=== PATIENT | female | born 1955 | race Caucasian/White ===

== ENCOUNTER 2016-06-22 05:33 | Inpatient (IN) | payer OTHER ==
[~2016-06-22] VITALS: Ht 152.4 cm; Wt 56.9 kg
[2016-06-22] VITALS (12 sets, daily range): BP systolic 102–168; BP diastolic 70–97; PULSE 93–112; RESP 16–18; Ht 152.4 cm; Wt 56.9 kg
[2016-06-22] MEDS ORDERED: DILTIAZEM 25 MG INJ IV ONE (06:00)
[2016-06-22 06:01] LABS: ADD SCAN DIFF NO
[2016-06-22 06:17] LABS: INR 1.11; PROTIME 14.3 Sec (12.2-14.2); PT RATIO 1.1
[2016-06-22 06:18] LABS: PARTIAL THROMBOPLASTIN TIME 52.9 Sec (25.0-35.0)
[2016-06-22 06:19] LABS: ALBUMIN 3.3 g/dl (3.3-4.9)
[2016-06-22 06:20] LABS: POTASSIUM 3.9 mmol/L (3.5-5.1)
[2016-06-22 06:22] LABS: ABNORMAL IP MESSAGE 1; ALBUMIN/GLOBULIN RATIO 0.84; BASOPHIL # 0.1 10^3/ul (0.0-0.1); BASOPHILS % 0.4 % (0.0-2.0); BILIRUBIN,INDIRECT 0.4 mg/dl (0-1.1); BILIRUBIN,TOTAL 0.4 mg/dl (0.2-1.3); CREATININE 1.92 mg/dl (0.44-1.00); EOSINOPHILS # 0.5 10^3/ul (0.0-0.5); HEMATOCRIT 35.1 % (37.0-47.0); HEMOGLOBIN 10.2 g/dl (12.0-16.0); LYMPHOCYTES # 5.4 10^3/ul (0.8-2.9); LYMPHOCYTES % 19.9 % (15.0-51.0); MEAN CORPUSCULAR HEMOGLOBIN 25.7 pg (29.0-33.0); MEAN CORPUSCULAR HGB CONC 29.1 g/dl (32.0-37.0); MEAN CORPUSCULAR VOLUME 88.4 fl (82.0-101.0); MEAN PLATELET VOLUME 9.8 fl (7.4-10.4); MONOCYTE # 1.3 10^3/ul (0.3-0.9); NEUTROPHIL # 19.5 10^3/ul (1.6-7.5); NEUTROPHILS % 72.1 % (39.0-77.0); PLATELET COUNT 335 10^3/UL (140-415); RED BLOOD COUNT 3.97 10^6/ul (4.20-5.40); RED CELL DISTRIBUTION WIDTH 15.7 % (11.5-14.5); TOTAL PROTEIN 7.2 g/dl (6.1-8.1)
[2016-06-22 06:23] LABS: CALCIUM 9.1 mg/dl (8.4-10.2)
--- NOTE | 2016-06-22 06:28 | RADRPT ---
PROCEDURE: XR Chest. CLINICAL INDICATION: Chest Pain. TECHNIQUE: Portable single view of the chest COMPARISON: 12/10/2008 FINDINGS: New right internal jugular double-lumen catheter is seen with tip likely in the right atrium. Cardi omegaly is seen. Pulmonary vascular congestion with probable interstitial edema. Left lower lobe i nfiltrate or edema is seen, fairly extensive. Small to moderate left pleural effusion. No right pl eural effusion. Fluid is seen in the minor fissure. IMPRESSION: Probable diffuse congestive heart failure. Infectious alveolar infiltrate of the left lower lobe is not excluded. Left pleural effusion. RPTAT: [facility] Physician Saurabh Date Time Electronically viewed and signed by Matilde Zavaleta, Physician on 06/22/2016 06:28 LE/
[2016-06-22 06:34] LABS: TROPONIN-I 0.037 ng/ml (0.00-0.12)
[2016-06-22] MEDS ORDERED: PIPER-TAZO 3.375 GM IV (PMX) 100 ML IVPB STA (06:34)
[2016-06-22] MEDS ORDERED: VANCOMYCIN 1 GM (PMX) 250 ML IVPB ONE (07:00)
[2016-06-22] MEDS ORDERED: AMLO-147 PO (07:19)
[2016-06-22] MEDS ORDERED: ASPI325T4 PO (07:19)
[2016-06-22] MEDS ORDERED: CARV12.579 PO (07:21)
[2016-06-22] MEDS ORDERED: ATOR40TA68 PO (07:21)
[2016-06-22] MEDS ORDERED: CLON0.2T5 PO (07:22)
[2016-06-22] MEDS ORDERED: CLOP75TA27 PO (07:22)
[2016-06-22] MEDS ORDERED: ERGO500037 PO (07:23)
[2016-06-22] MEDS ORDERED: FER325 PO (07:24)
[2016-06-22] MEDS ORDERED: ISOS60TA PO (07:25)
[2016-06-22] MEDS ORDERED: LANT3I SC (07:25)
[2016-06-22] MEDS ORDERED: PENT400T2 PO (07:26)
[2016-06-22] MEDS ORDERED: NIFE30TA60 PO (07:26)
[2016-06-22] MEDS ORDERED: ACETAMINOPHEN 325 MG TAB PO PRN (08:00)
[2016-06-22] MEDS ORDERED: ONDANSETRON 4 MG INJ IV PRN (08:00)
[2016-06-22] MEDS ORDERED: SODIUM CHLORIDE 0.9% 1L BAG IV* STA (08:10)
[2016-06-22] MEDS ORDERED: INSULIN LISPRO 100 UNIT/ML VIAL SC STA (08:14)
--- NOTE | 2016-06-22 08:19 | ERA ---
ER Documentation Chief Complaint Date/Time DATE: 06/22/16 TIME: 07:42 Chief Complaint bib rescue 39 in afib w rvr and mild respiratory distress HPI 60-year-old female is brought in respiratory extremis from dialysis for having a high heart rate and breathing difficulties. Cardio the patient today is her first dialysis. Very little dialysis was completed prior to sending her to the emergency room. She states she's been feeling bad for at least a day. Denies chest pain but says she's had chest discomfort, shortness of breath, chills. States that she's had a mild cough. Denies fevers. Has had generalized weakness with no focal weakness. ROS All systems reviewed and are negative except as per history of present illness. Medications Home Meds Reported Medications Pentoxifylline* (Pentoxifylline*) 400 Mg Tablet.sa, 400 MG PO DAILY, TAB 06/22/16 Nifedipine* (Nifedipine ER*) 30 Mg Tablet.sa, 30 MG PO BID, TAB.SA 06/22/16 Isosorbide Mononitrate* (Isosorbide Mononitrate*) 60 Mg Tab.er.24h, 60 MG PO DAILY, TAB 06/22/16 Insulin Glargine* (Lantus*) 100 Unit/Ml Soln, 25 UNIT SC QHS, #1 VIAL 06/22/16 Ferrous Sulfate* (Ferrous Sulfate*) 325 Mg Tabec, 325 MG PO BID, TAB 06/22/16 Ergocalciferol (Vitamin D2) (VITAMIN D2) 50,000 Unit Capsule, 01111 UNIT PO EVERY SUNDAYS, CAP 06/22/16 Clopidogrel Bisulfate (Clopidogrel) 75 Mg Tablet, 75 MG PO DAILY, #30 TAB 06/22/16 Clonidine Hcl* (Clonidine Hcl*) 0.2 Mg Tablet, 0.2 MG PO Q8, TAB 06/22/16 Carvedilol* (Carvedilol*) 12.5 Mg Tablet, 12.5 MG PO BID, #60 TAB 06/22/16 Atorvastatin* (Atorvastatin*) 40 Mg Tablet, 40 MG PO QHS, #30 TAB 06/22/16 Aspirin* (Aspirin*) 325 Mg Tablet, 325 MG PO DAILY, TAB 06/22/16 Amlodipine Besylate* (Amlodipine Besylate*) 10 Mg Tablet, 10 MG PO DAILY, #30 TAB 06/22/16 Allergies Allergies: Coded Allergies: Sulfa (Sulfonamide Antibiotics) (Verified Allergy, Unknown, 12/10/08) Sulfamethoxazole (Verified Allergy, Unknown, 12/10/08) Trimethoprim (Verified Allergy, Unknown, 12/10/08) PMhx/Soc History of Surgery: Yes (APPENDECTOMY, LITHOTRIPSY) Anesthesia Reaction: No Hx Neurological Disorder: No Hx Cardiac Disorders: Yes (HTN,MA) Hx Psychiatric Problems: No Hx Miscellaneous Medical Probl: Yes (ESRD ON HD, DM) Hx Alcohol Use: No Hx Substance Use: No Hx Tobacco Use: No Smoking Status: Never smoker Physical Exam Vitals Vital Signs Date Time Temp Pulse Resp B/P Pulse Ox O2 Delivery O2 Flow Rate FiO2 06/22/16 06:04 117 96 60 06/22/16 06:02 95 20 163/73 95 BIPAP 06/22/16 05:45 97.9 156 38 248/133 95 Physical Exam Const: [] Moderate to severe distress Head: Atraumatic Eyes: Normal Conjunctiva ENT: Normal External Ears, Nose and Mouth. Neck: Full range of motion..~ No meningismus. Resp: Rales and decreased breath sounds bilaterally, tachypnea, accessory muscle use Cardio: Regular tachycardia no murmurs Abd: Soft, non tender, non distended. Normal bowel sounds Skin: No petechiae or rashes Back: No midline or flank tenderness Ext: No cyanosis, trace pedal edema, right sided dialysis catheter and upper chest Neur: Awake and alert and oriented 3 Psych: Anxious Result Diagram: 06/22/16 0545 06/22/16 0545 Results 24 hrs Laboratory Tests Test 06/22/16 05:45 White Blood Count 27.010^3/ul Red Blood Count 3.9710^6/ul Hemoglobin 10.2g/dl Hematocrit 35.1% Mean Corpuscular Volume 88.4fl Mean Corpuscular Hemoglobin 25.7pg Mean Corpuscular Hemoglobin Concent 29.1g/dl Red Cell Distribution Width 15.7% Platelet Count 02464^3/UL Mean Platelet Volume 9.8fl Neutrophils % 72.1% Lymphocytes % 19.9% Monocytes % 5.0% Eosinophils % 2.0% Basophils % 0.4% Nucleated Red Blood Cells % 0.0/100WBC Neutrophils # 19.510^3/ul Lymphocytes # 5.410^3/ul Monocytes # 1.310^3/ul Eosinophils # 0.510^3/ul Basophils # 0.110^3/ul Nucleated Red Blood Cells # 0.010^3/ul Prothrombin Time 14.3Sec Prothrombin Time Ratio 1.1 INR International Normalized Ratio 1.11 Activated Partial Thromboplast Time 52.9Sec Sodium Level 141mmol/L Potassium Level 3.9mmol/L Chloride Level 102mmol/L Carbon Dioxide Level 24mmol/L Anion Gap 19 Blood Urea Nitrogen 24mg/dl Creatinine 1.92mg/dl Glucose Level 353mg/dl Calcium Level 9.1mg/dl Total Bilirubin 0.4mg/dl Direct Bilirubin 0.00mg/dl Indirect Bilirubin 0.4mg/dl Aspartate Amino Transf (AST/SGOT) 62IU/L Alanine Aminotransferase (ALT/SGPT) 62IU/L Alkaline Phosphatase 154IU/L Troponin I 0.037ng/ml B-Type Natriuretic Peptide Pending Total Protein 7.2g/dl Albumin 3.3g/dl Globulin 3.90g/dl Albumin/Globulin Ratio 0.84 Current Medications Medications (Trade) Dose Ordered Sig/Paula Route PRN Reason Start Time Stop Time Status Last Admin Dose Admin Diltiazem HCl 20 mg 20 mg ONCE ONCE IV 06/22/16 06:00 06/22/16 06:01 DC 06/22/16 05:45 Vancomycin HCl 250 ml @ 125 mls/hr ONCE ONCE IVPB 06/22/16 07:00 06/22/16 08:59 Piperacillin Sod/ Tazobactam Sod (Zosyn 3.375gm/ 100 ml (Pmx)) 100 ml @ 200 mls/hr ONCE STAT IVPB 06/22/16 06:34 06/22/16 07:03 DC Procedures/MDM A. fib with RVR, malignant hypertension, respiratory failure secondary to CHF/ fluid overload, sepsis. Initial hospital EKG read as sinus tachycardia in the have P waves however EKG in the field showed A. fib with RVR which patient does have a history of. She is put on BiPAP and given 20 mg of Cardizem IV which did decrease her heart rate as as well as her blood pressure decreased her distress. When her white blood cell count came back 3 times his previous value she was diagnosed with sepsis by myself. Sources possibly pneumonia as the chest x-rays obscured by fluid overload. Urine is still pending. Started the patient vancomycin and Zosyn. After 2 hours and remove the BiPAP and the patient was breathing much better requiring only nasal cannula. Given lispro 8 units subcutaneously for hyperglycemia. Her condition is significant improved enough to be admitted to telemetry currently. I spoke with Dr. Boss, who called the emergency room by his patient. He requested the patient be admitted to Dr. Nance, whom I spoke with and agreed to admit the patient. For sepsis protocol: 30 mL/kg of IV fluid was not given because patient has physical exam signs, radiological signs and laboratory evidence of severe fluid overload. EKG interpretation: Sinus tachycardia rate of 157, left axis deviation, inverted T waves in lateral leads concerning for possible ischemia. Normal intervals. ekg monitor tech interpretation: Sinus tachycardia versus A. fib with RVR followed by normal sinus rhythm without arrhythmia Chest x-ray interpretation: Pulmonary vascular congestion and mild pulmonary edema with possible superimposed infiltrate, no pneumothorax, no widened mediastinum, no fractures. Critical care time 51 minutes: This includes treatment of multiple in stable vital signs with malignant hypertension, extreme tachycardia, respiratory failure, sepsis, very careful fluid management, antibiotic administration, use of Cardizem, use of noninvasive positive pressure ventilation, ventilator settings, chart review, multiple is the patient's bedside to reassess status, discussion with patient's doctor as well as admitting physician. Discussed with patient. This does not include any billable procedures. Departure Diagnosis: Primary Impression: Respiratory failure Additional Impressions: Sepsis Malignant hypertension Congestive heart failure Hyperglycemia Condition: Serious EMILIANO GUZMAN DO Jun 22, 2016 08:01
[2016-06-22 08:23] LABS: AADO2 Arterial 111.2 mmHg (7.0-24.0); Allen Test ACCEPTAB; Arterial Base Excess -0.3 mmol/L (-3.0-3); Arterial COHb 0.3 % (0.0-3.0); Arterial Fraction of Oxyhgb 90.1 % (93.0-99.0); Arterial HCO3 23.9 mmol/L (22.0-26.0); Arterial MetHb 0.2 % (0.0-1.5); Arterial Total Hemglobin 10.3 g/dl (12.0-18.0); MODE NASAL CANNULA
[2016-06-22] MEDS ORDERED: INSULIN ASPART [NOVOLOG] 3 ML PEN SC ONE (08:30)
[2016-06-22 08:38] LABS: ADD UMIC YES; URINE BILIRUBIN (Dip) NEGATIVE (NEGATIVE); URINE BLOOD (Dip) 1+ (NEGATIVE); URINE COLOR LT. YELLOW (YELLOW); URINE KETONES (Dip) NEGATIVE (NEGATIVE); URINE LEUKOCYTE ESTERASE (Dip) 2+ (NEGATIVE); URINE NITRITE (Dip) NEGATIVE (NEGATIVE); URINE TOTAL PROTEIN (Dip) 4+ (NEGATIVE); URINE UROBILINOGEN (Dip) 0.2 E.U./dL (0.1-1.0)
[2016-06-22 08:51] LABS: BACTERIA,URINE MODERATE; URINE RBCS 25-50 /HPF (0)
--- NOTE | 2016-06-22 10:11 | CONS ---
DATE OF ADMISSION: 06/22/2016 DATE OF CONSULTATION: TYPE OF CONSULTATION: Cardiology. REFERRING PHYSICIAN: Dr. Nance. REASON FOR CONSULTATION: Atrial fibrillation. CHIEF COMPLAINT: Tachycardia. HISTORY OF PRESENT ILLNESS: Thank you for this referral. History obtained from the patient who is an extremely poor historian. Discussed with the ER physician. Discussed with Dr. Nance. This is an unfortunate female with history of renal failure on dialysis, who was brought in from dialysis after she was noted to become tachycardic. Enterprise Analyst EKG showed atrial fibrillation with rapid ventricular response. ER EKG appeared to be sinus tachycardia. She has been given Cardi zem, heart rate has improved, and currently blood pressure has improved. She has severe leukocytosi s as well. She complains of generalized weakness. Denies any palpitations or chest pain to me. Lee s mild cough. She denies any history of cardiac disorder; however, again is an extremely poor histo armin. MEDICATIONS: At home, as per medication reconciliation, personally reviewed. ALLERGIES: SULFA DRUGS. SOCIAL HISTORY: The denies any smoking or drinking to me. FAMILY HISTORY: No reported coronary artery disease. PAST MEDICAL HISTORY: Renal failure on dialysis, hypertension, history of diabetes, dyslipidemia. REVIEW OF SYSTEMS PHYSICAL EXAMINATION: VITAL SIGNS: Temperature 97.9, heart rate 89, blood pressure 160/73, respiration rate of 20, satura ting 96%. Initially, her blood pressure was as high as 248/130. HEENT: Normocephalic, atraumatic. Pupils are equal. Oropharynx with very poor dentition. CARDIOVASCULAR: Regular rate and rhythm, systolic murmur. PULMONARY: With no wheezes anteriorly, mild rhonchi. GASTROINTESTINAL: Soft, nontender. EXTREMITIES: Positive lower extremity edema. NEUROLOGIC: Awake and alert. Responds appropriately. PSYCHIATRIC: Anxious, otherwise stable. LABORATORY: WBC 27, hemoglobin 10.2, platelets 335. Sodium 141, potassium 3.9, BUN of 24, creatini ne 1.9, glucose of 353. 134,000. Albumin is 3.3. Chest x-ray read by radiologist shows prob ably diffuse congestive heart failure. in the left lower lobe is not excluded. Left pleural effusion. EKG by paramedics, atrial fibrillation. Repeat EKG shows what appeared to be sinus tachycardia most likely. ASSESSMENT AND PLAN: 1. Atrial fibrillation with rapid ventricular response, paroxysmal, currently back in sinus rhythm. 2. Probable sepsis. 3. Hypertension. 4. Renal failure on dialysis. 5. Diabetes. 6. Dyslipidemia. 7. Questionable history of coronary artery disease, on aspirin and Plavix now. RECOMMENDATIONS: I will order an echocardiogram for LV function. Thyroid function will be checked as well. Dialysis as per Renal. Cardiac enzymes will be checked as well. For now, we will continu e with the aspirin and Plavix. bioinformatics programmer will be continued. Antibiotic management as per I nternal medicine. Thank you for this referral. We will continue to follow along with you. Dictated By: FREDERICK HANSEN/ANGIE Conf#: [id number] DID#: [id number]
--- NOTE | 2016-06-22 12:13 | HP ---
DATE OF ADMISSION: 06/22/2016 CHIEF COMPLAINT: Shortness of breath, chills. HISTORY OF PRESENT ILLNESS: This is a 60-year-old female with a past medical history of end-stage r enal disease on dialysis Monday, Monday, Monday with access PermCath, history of diabetes, hypert ension, dyslipidemia, history of coronary artery disease with history of peripheral vascular disease who presents to [facility] Emergency Room from her dialysis center due to shortness of jovani ath and respiratory distress. The patient at her dialysis center was noted to be tachycardic, havin g difficulty breathing. As a result, the patient was brought over to [facility] Emergency Room. Upon arrival, patient was noted to be in atrial fibrillation with rapid rate with heart rates as high as 150s. The patient was given IV diltiazem converted to sinus rhythm. The patient also d uring laboratory data showed a white count of 27,000, had a dirty urinalysis and was given IV antibi otic therapy. The patient clinically improved. Upon my evaluation of the patient at this time, she is lethargic. Denies any recent episodes of hem optysis, hemetemesis, hematochezia. The patient still continues to have mild shortness of breath. No other events noted. PAST MEDICAL HISTORY: History of end-stage renal disease, history of hypertension, history of diabe jose raul, history of dyslipidemia, history of coronary artery disease, history of peripheral vascular dis ease. PAST SURGICAL HISTORY: The patient is status post appendectomy, lithotripsy and PermCath placement. FAMILY HISTORY: Noncontributory. ALLERGIES: Please see list. SOCIAL HISTORY: Does not drink, smoke or do drugs. MEDICATIONS: Patient medications have been reviewed and reconciled. REVIEW OF SYSTEMS: A 14-point review of systems was conducted. Pertinent positives stated in HPI, otherwise negative. PHYSICAL EXAMINATION: VITAL SIGNS: Blood pressure 159/79, respiration 18, pulse 80, temperature 97.9. HEENT: Head is normocephalic. Pupils are reactive to light. NECK: Supple. HEART: Irregularly irregular. LUNGS: Show diminished breath sounds at the base. Positive crackles. CHEST: The patient has a PermCath noted. ABDOMEN: Soft, nontender to palpation. No rebound or guarding. EXTREMITIES: Negative for clubbing, cyanosis. Positive for edema. DERMATOLOGIC: No rashes. MUSCULOSKELETAL: No joint effusions. NEUROLOGIC: No obvious focal deficits, although, exam is somewhat limited due to lack of patient co operation. LABORATORY DATA: Shows a sodium 141, potassium 2.9, chloride 102, BUN 24, creatinine 1.29, glucose 353. BNP is 134,000, white count 27, hemoglobin 10.3, hematocrit 35.1, platelet count 355. IMAGING STUDIES: The patient's chest x-ray shows diffuse CHF, infectious alveolar infiltrate cannot be excluded. ASSESSMENT AND PLAN: This is a 60-year-old female who presents with: 1. Sepsis, underlying source unclear, possible pneumonia, possible urinary tract infection. Plan a t this point is to continue the patient on antibiotic therapy. Blood cultures have been sent. Lact ic acid levels are within normal limits. Will also check procalcitonin level. We will place an ID consult with Dr. Suero for evaluation and monitor closely. 2. Atrial fibrillation with rapid ventricular rate. Underlying etiology may be due to sepsis. The patient is currently in sinus rhythm. The patient will be ruled out for acute coronary syndrome. Cardiology consult was placed with Dr. Rodriguez. We will continue current medical management. Continu e AV david blockers. 3. End-stage renal disease. The patient is on dialysis Monday, Monday and Monday with access [facility]. Plan for dialysis today for 3 hours on 3 K bath, calcium 2.5, will ultrafiltrate as tolerat ed. 4. Acute congestive heart failure exacerbation, possible systolic, diastolic. The patient is has n oted congestion on chest x-rays. We will plan for ultrafiltration with dialysis. 5. Diabetes. Continue Accu-Cheks and sliding scale. Continue Lantus. 6. Anemia of end-stage renal disease. Continue to monitor H and H levels. Continue Epogen. 7. Mineral bone disorder. Continue to monitor and phosphorus levels. 8. History of coronary artery disease. Continue medical management. 9. History of peripheral arterial disease. The patient is on Trental, we will continue. 10. Hypertension. Continue current blood pressure regimen. Continue ultrafiltration dialysis. 11. Gastrointestinal and deep venous thrombosis prophylaxis. Continue proton pump inhibitor and se quential leg squeezers. Please note, I spent over 25 minutes of [id number] time with the patient, discussing code. The pat ient is FULL CODE. Dictated By: ÁNGEL GOLDBERG/ANGIE Conf#: [id number] DID#: [id number]
[2016-06-22] MEDS ORDERED: DEXTROSE 50% 50 ML SYRINGE IV PRN ×2 (12:30)
[2016-06-22] MEDS ORDERED: GLUCAGON 1 MG INJ IM PRN (12:30)
[2016-06-22] MEDS ORDERED: GLUCOSE GEL 15 GRAM TUBE PO PRN ×2 (12:30)
[2016-06-22] MEDS ORDERED: GLUCOSE GEL 15 GRAM TUBE BUCCAL PRN (12:30)
--- NOTE | 2016-06-22 15:50 | CONS ---
Date/Time of Note Date/Time of Note DATE: 06/22/16 TIME: 15:49 Assessment/Plan Assessment/Plan Chief Complaint/Hosp Course ID PROGRESS NOTE ABX DAY #1=> Levaquin #1 + IV Steroids 24H INTERVAL SUMMARY * Patient seen and examined earlier today in ED #3 - she is A/A/O able to communicate; however she is weak and prefers to sleep. * She was admitted w/chest pain in setting tachycardia, HTN urgency, and pulmonary fluid overload -- tells me she is waiting for HD today was told "No machines available right now" * CXR 06/22/16 FINDINGS: * New right internal jugular double-lumen catheter is seen with tip likely in the right atrium. Cardiomegaly is seen. Pulmonary vascular congestion with probable interstitial edema. Left lower lobe infiltrate or edema is seen, fairly extensive. Small to moderate left pleural effusion. No right pleural effusion. Fluid is seen in the minor fissure. * IMPRESSION:Probable diffuse congestive heart failure. Infectious alveolar infiltrate of the left lower lobe is not excluded. Left pleural effusion. * INITIAL ED VITALS: HR 156 B/P 248/133 , TEMP 97.9 with significant leukocytosis @ 27,000, w/elevated BNP 134,000 * She has chest congestion w/cough PHYSICAL EXAMINATION: GENERAL: 60 yo F lethargic on supplemental O2, calm, NAD, communicative HEENT: AT, NC, anicteric, EOMsI, no oral thrush NECK: Supple, trachea midline. CHEST: Rise symmetrical, (+) chest congested coughing w/deep inspiration, Right chest HD catheter in place HEART: Pulse RRR -- Tachy ABDOMEN: Soft, non-tender EXTREMITIES: Warm, dry, no edema SKIN: Intact Neuro: Grossly intact ID ASSESSMENT 60 yo F w/PMHx of HTN, DM, prior [place], ESRD-HD via right chest HD catheter present on admission seen in ED bed #3 earlier today with: 1. Acute chest pain in setting fluid overload, tachycardia, HTN urgency, with mild respiratory distress associated w/hypoxia, cough, chest congestion. 2. Acute fluid overload status -- CHF w/elevated BNP, tachycardia 3. SIRS vs cold sepsis w/hypothermic temp 97.9 on presentation, elevated lactic acid to 1.7, significant leukocytosis 27,000 4. Acute bronchopneumonia, with LLL infiltrate - HCAP per HD unit status OP 5. Hx of [place] ( ) MRSA Nares-> Will screen INVASIVES: PIV ABX ALLERGY: KNDA CURRENT ABX: ABX DAY #1=>Vanco IV + Zosyn ID RECOMMENDATIONS 1. Continue current ABX 2. Sputum for C&S 3. Swab nares for MRSA * -- Awaiting available hospital bed and HD when available * --Thank you, will continue to follow * * . Problems: Consultation Date/Type/Reason Admit Date/Time Initial Consult Date Exam/Review of Systems Vital Signs Vitals Vital Signs Date Time Temp Pulse Resp B/P Pulse Ox O2 Delivery O2 Flow Rate FiO2 06/22/16 15:15 97 06/22/16 14:45 19 06/22/16 13:30 161/83 96 Nasal Cannula 4.0 06/22/16 07:30 60 06/22/16 05:45 97.9 Results Result Diagram: 06/22/16 0545 06/22/16 0545 Results 24 hrs Laboratory Tests Test 06/22/16 05:45 06/22/16 07:00 06/22/16 07:50 06/22/16 08:34 White Blood Count 27.0 H Red Blood Count 3.97 L Hemoglobin 10.2 L Hematocrit 35.1 L Mean Corpuscular Volume 88.4 Mean Corpuscular Hemoglobin 25.7 L Mean Corpuscular Hemoglobin Concent 29.1 L Red Cell Distribution Width 15.7 H Platelet Count 335 Mean Platelet Volume 9.8 Neutrophils % 72.1 Lymphocytes % 19.9 Monocytes % 5.0 Eosinophils % 2.0 Basophils % 0.4 Nucleated Red Blood Cells % 0.0 Neutrophils # 19.5 H Lymphocytes # 5.4 H Monocytes # 1.3 H Eosinophils # 0.5 Basophils # 0.1 Nucleated Red Blood Cells # 0.0 Prothrombin Time 14.3 H Prothrombin Time Ratio 1.1 INR International Normalized Ratio 1.11 Activated Partial Thromboplast Time 52.9 H Sodium Level 141 Potassium Level 3.9 Chloride Level 102 Carbon Dioxide Level 24 Anion Gap 19 H Blood Urea Nitrogen 24 H Creatinine 1.92 H Glucose Level 353 H Calcium Level 9.1 Total Bilirubin 0.4 Direct Bilirubin 0.00 Indirect Bilirubin 0.4 Aspartate Amino Transf (AST/SGOT) 62 H Alanine Aminotransferase (ALT/SGPT) 62 Alkaline Phosphatase 154 H Troponin I 0.037 B-Type Natriuretic Peptide 219748 H Total Protein 7.2 Albumin 3.3 Globulin 3.90 H Albumin/Globulin Ratio 0.84 Blood Gas Specimen Source Blood arterial Arterial Blood Date Drawn 06/22/2016 8:14:17 AM Arterial Blood pH (Temp corrected) 7.423 Arterial Blood pCO2 (Temp correct) 37.5 Arterial Blood pO2 (Temp corrected) 58.6 L Arterial Blood HCO3 23.9 Arterial Blood Base Excess -0.3 Arterial Blood Oxygen Saturation 90.6 L Homar Test ACCEPTAB Arterial Blood Gas Puncture Site Left Radial Arterial Blood Carboxyhemoglobin 0.3 Arterial Blood Methemoglobin 0.2 Blood Gas A-a O2 Differential 111.2 H Oxyhemoglobin Percent 90.1 L Total Hemoglobin 10.3 L Blood Gas Temperature 37.0 Blood Gas Modality NASAL CANNULA FiO2 30.0 Blood Gas Notified Whom JLD Blood Gas Notified Time 06/22/2016 8:22:56 AM Lactic Acid Level 1.7 1.4 Urine Color LT. YELLOW Urine Clarity CLEAR Urine pH 6.5 Urine Specific [place] 1.015 Urine Ketones NEGATIVE Urine Nitrite NEGATIVE Urine Bilirubin NEGATIVE Urine Urobilinogen 0.2 E.U./dL Urine Leukocyte Esterase 2+ H Urine Microscopic RBC 25-50 Urine Microscopic WBC >50 Urine Epithelial Cells FEW Urine Bacteria MODERATE Urine Yeast MODERATE Urine Hemoglobin 1+ H Urine Glucose 0.25% H Urine Total Protein 4+ H Test 06/22/16 13:20 Lactic Acid Level 0.8 Medications Medications Current Medications Aspirin (Aspirin) 325 mg DAILY PO ; Start 06/23/16 at 09:00 Atorvastatin Calcium (Lipitor) 40 mg QHS PO ; Start 06/22/16 at 21:00 Carvedilol (Coreg) 12.5 mg BID PO ; Start 06/22/16 at 21:00 Clonidine (Catapres) 0.2 mg Q8 PO ; Start 06/22/16 at 14:00 Clopidogrel Bisulfate (plaVIX) 75 mg DAILY PO ; Start 06/23/16 at 09:00 Ferrous Sulfate (Ferrous Sulfate (Ec)) 325 mg BID PO ; Start 06/22/16 at 21:00 Isosorbide Mononitrate (Imdur) 60 mg DAILY PO ; Start 06/23/16 at 09:00 Nifedipine (Procardia Xl) 30 mg BID PO ; Start 06/22/16 at 21:00; Status Future hold Pentoxifylline (Trental) 400 mg DAILY PO ; Start 06/23/16 at 09:00 Miscellaneous Information 1 ea NOTE XX ; Start 06/22/16 at 12:30 Glucose (Glutose) 15 gm Q15M PRN PO DECREASED GLUCOSE; Start 06/22/16 at 12:30 Glucose (Glutose) 22.5 gm Q15M PRN PO DECREASED GLUCOSE; Start 06/22/16 at 12: 30 Dextrose (D50w Syringe) 25 ml Q15M PRN IV DECREASED GLUCOSE; Start 06/22/16 at 12:30 Dextrose (D50w Syringe) 50 ml Q15M PRN IV DECREASED GLUCOSE; Start 06/22/16 at 12:30 Glucagon (Glucagen) 1 mg Q15M PRN IM DECREASED GLUCOSE; Start 06/22/16 at 12:30 Glucose (Glutose) 15 gm Q15M PRN BUCCAL DECREASED GLUCOSE; Start 06/22/16 at 12 :30 Insulin Glargine (Lantus) 10 unit QHS SC ; Start 06/22/16 at 21:00 AUGSTIN IRELAND NP Jun 22, 2016 15:50
--- NOTE | 2016-06-22 16:30 | CONS ---
DATE OF ADMISSION: 06/22/2016 DATE OF CONSULTATION: 06/22/2016 REASON FOR CONSULTATION: Antibiotic management. HISTORY OF PRESENT ILLNESS: Magalys Finley is a 60-year-old female who comes in with short ness of breath and chills and is being seen for antibiotic management. Her past problems include: 1. End-stage renal disease on dialysis 3 times a week. She has a PermCath. 2. Her second problem is PermCath placement. 2. Adult-onset diabetes mellitus. 3. Hypertension. 4. Dyslipidemia. 5. Coronary artery disease. 6. Peripheral vascular disease. Acutely, she presents to [facility] from the dialysis center short of breath and r espiratory distress. She was noted to be tachycardic with difficulty breathing. She was noted to b e in atrial fibrillation with rapid response, heart rate in the 150s and was given IV diltiazem to c onvert to sinus rhythm. Her white count was 27,000, H and H of 10.3 and 35.1, platelet count 515,00 0. BUN and creatinine 24/1.9, although, she is on dialysis and her random glucose was 353. PAST MEDICAL HISTORY: As outlined. PAST SURGICAL HISTORY: Status post appendectomy, status post lithotripsy and PermCath placement. FAMILY HISTORY: Noncontributory. SOCIAL HISTORY: She does not smoke, drink or abuse drugs. ALLERGIES: NONE TO PENICILLIN, SULFA OR FOODS. MEDICATIONS: Per chart. REVIEW OF SYSTEMS: As per HPI. PHYSICAL EXAMINATION: GENERAL: The patient is an elderly appearing female who is lethargic but arousable, in no acute dis tress. VITAL SIGNS: Stable. She is afebrile. SKIN: Without generalized rash. HEENT: Within normal limits. NECK: Supple. LYMPH NODES: None palpable. CHEST: Decreased breath sounds at the bases. THORAX: She has a PermCath placed. HEART: Irregularly irregular rhythm. ABDOMEN: Soft, nontender, without organosplenomegaly or masses. EXTREMITIES: Without cyanosis, clubbing, or edema. RECTAL AND GENITAL: Deferred. NEUROLOGIC: No focal neurological abnormalities, although, the exam is limited due to lack of patie nt cooperation. Chest x-ray shows diffuse CHF. She has an alveolar infiltrates which may be infect ious. IMPRESSION AND PLAN: The patient comes in with sepsis, probable pneumonia, possible urinary tract i nfection. Blood cultures sent, lactic acid levels within normal limits. Procalcitonin level was se nt. The patient was begun on vancomycin and Zosyn. She has a new right internal jugular double lum en catheter tip in the right atrium, interstitial edema, left lower lobe infiltrate. We will continu e her on current therapy. Her urine is negative for nitrite, but she is 2+ leukocyte esterase and g reater than 50 white cells per high-power field, so she could have a urinary tract infection as well as pneumonia. I will dictate my findings to Dr. Nance. Dictated By: KASSANDRA ARREGUIN MD, JD/ANGIE Conf#: [id number] DID#: [id number]
[2016-06-22] MEDS: INSULIN ASPART [NOVOLOG] 3 ML PEN SC SCH ×2 (17:55→21:00)
[2016-06-22] MEDS ORDERED: INSULIN GLARGINE [LANtus] 3 ML PEN SC SCH (21:00)
[2016-06-22] MEDS: ATORVASTATIN 40 MG TAB PO SCH (22:00)
[2016-06-22] MEDS: FERROUS SULFATE (EC) 325 MG TAB PO SCH (22:00)
[2016-06-22] MEDS: NIFEdipine (XL) 30 MG TAB PO SCH (22:00)
[2016-06-23] VITALS (19 sets, daily range): BP systolic 101–159; BP diastolic 50–76; PULSE 75–96; RESP 16–20
[2016-06-23] MEDS: INSULIN GLARGINE [LANtus] 3 ML PEN SC SCH ×2 (00:44→22:22)
[2016-06-23] MEDS: INSULIN ASPART [NOVOLOG] 3 ML PEN SC SCH ×4 (07:55→22:19)
[2016-06-23 08:07] LABS: CALCIUM 8.7 mg/dl (8.4-10.2); CREATININE 1.74 mg/dl (0.44-1.00); MAGNESIUM 1.9 mg/dl (1.7-2.5); PHOSPHORUS 3.6 mg/dl (2.5-4.9); POTASSIUM 3.6 mmol/L (3.5-5.1)
--- NOTE | 2016-06-23 08:38 | RADRPT ---
Echocardiogram Report Patient Name: ADELE HENDRICKSON Gender: Female Date: 1955 Study Date: 22-Jun-2016 Contracting Engineer: ELISSA [facility] Location: [facility] Ref. Physician: FREDERICK RODRIGUEZ Quality: Good Procedures: Transthoracic echocardiogram with complete 2D, M-Mode, and doppler examination. Indications: Atrial Fibrillation, CHF. 2D/M Mode Doppler Measurement Value Normal Ranges Measurement Value Normal Ranges LVIDd 2D 4.3 3.5 - 5.6 cm AV Peak Mitch 1.7 m/sec LVIDs 2D 3.9 2.1 - 4.1 cm AV Peak PG 11.9 mmHg LVPWd 2D 1.5 0.6 - 1.1 cm LVOT Peak Mitch 1.1 m/sec IVSd 2D 1.5 0.6 - 1.1 cm LVOT Peak PG 4.5 mmHg AoR Diam 2D 2.4 2.0 - 3.7 cm MV E Peak Mitch 1.3 m/sec EDV 2D 80.9 cm3 MV A Peak Mitch 1.0 m/sec ESV 2D 58.7 cm3 MV E/A 1.2 LA Dimen 2D 4.5 2.3 - 4.0 cm MV Decel Time 109 msec MV Decel Houghton 12 MV E/A 1.2 TR Peak Mitch 2.2 m/sec TR Peak PG 20.2 mmHg Findings Left Ventricle: Normal left ventricular cavity size. Moderate concentric left ventricular hypertrophy. Ejection fraction is visually estimated at 25 %. Tissue Doppler/Mitral Doppler indices are consistent with impaired relaxation (Stage I diastolic dysfunction). Multiple segmental wall motion abnormalities. Right Ventricle: Normal right ventricular systolic function. Mild enlargement of right ventricle. Left Atrium: There is moderate enlargement of left atrium. Right Atrium: The right atrium is normal in size. Mitral Valve: Mild mitral leaflet calcification. Mild mitral annular calcification. Mild to moderate mitral valve regurgitation. Aortic Valve: Normal appearance of the aortic valve. Trace aortic valve regurgitation. Tricuspid Valve: Tricuspid valve not well visualized. Estimated peak PA systolic pressure 22 mmHg. There is mild tricuspid regurgitation. Pulmonic Valve: There is mild pulmonic regurgitation. Pericardium: Pleural effusion seen. Aorta: Normal aortic root. IVC: Dilated inferior vena cava with poor inspiratory collapse consistent with elevated right atrial pressures. Conclusions 1.Normal left ventricular cavity size. Moderate concentric left ventricular hypertrophy. Ejection fraction is visually estimated at 25 %. Tissue Doppler/Mitral Doppler indices are consistent with impaired relaxation (Stage I diastolic dysfunction). Multiple segmental wall motion abnormalities. 2.There is moderate enlargement of left atrium. 3.Mild mitral leaflet calcification. Mild mitral annular calcification. Mild to moderate mitral valve regurgitation. 4.Normal appearance of the aortic valve. Trace aortic valve regurgitation. 5.Tricuspid valve not well visualized. Estimated peak PA systolic pressure 22 mmHg. There is mild tricuspid regurgitation. 6.Dilated inferior vena cava with poor inspiratory collapse consistent with elevated right atrial pressures. Electronically Signed By: Frederick Rodriguez 23-Jun-2016 08:37:20 -0700 Patient Name: ADELE HENDRICKSON Study Date: 22-Jun-2016 [id number]
[2016-06-23] MEDS: ASPIRIN 325 MG TAB PO SCH (08:43)
[2016-06-23] MEDS: FERROUS SULFATE (EC) 325 MG TAB PO SCH ×2 (08:44→21:42)
[2016-06-23] MEDS: NIFEdipine (XL) 30 MG TAB PO SCH ×2 (08:45→21:42)
[2016-06-23] MEDS: CLOPIDOGREL 75 MG TAB PO SCH (08:45)
[2016-06-23] MEDS: ISOSORBIDE MONONITRATE(SR)60 MG TAB PO SCH (08:45)
[2016-06-23] MEDS: PENTOXIFYLLINE (SR) 400 MG TAB PO SCH (08:45)
[2016-06-23] MEDS ORDERED: AMLODIPINE 10 MG TAB PO SCH (09:00)
[2016-06-23 09:09] LABS: ADD SCAN DIFF NO
[2016-06-23 09:10] LABS: BASOPHILS % 0.3 % (0.0-2.0); EOSINOPHILS # 0.5 10^3/ul (0.0-0.5); EOSINOPHILS % 5.1 % (0.0-7.0); HEMATOCRIT 30.4 % (37.0-47.0); HEMOGLOBIN 9.2 g/dl (12.0-16.0); LYMPHOCYTES # 1.7 10^3/ul (0.8-2.9); MEAN CORPUSCULAR HEMOGLOBIN 26.1 pg (29.0-33.0); MEAN CORPUSCULAR HGB CONC 30.3 g/dl (32.0-37.0); MEAN CORPUSCULAR VOLUME 86.1 fl (82.0-101.0); MONOCYTE # 0.9 10^3/ul (0.3-0.9); NEUTROPHIL # 7.1 10^3/ul (1.6-7.5); NEUTROPHILS % 69.2 % (39.0-77.0); PLATELET COUNT 208 10^3/UL (140-415); RED BLOOD COUNT 3.53 10^6/ul (4.20-5.40); RED CELL DISTRIBUTION WIDTH 15.7 % (11.5-14.5); WHITE BLOOD COUNT 10.3 10^3/ul (4.8-10.8)
[2016-06-23] MEDS: LISINOPRIL 20 MG TAB PO SCH (09:59)
--- NOTE | 2016-06-23 10:27 | PN ---
DATE: 06/23/2016 SUBJECTIVE: The patient is stable, clinically improving. The patient had hemodialysis yesterday an d tolerated it well. No other events noted. No hemoptysis, hematemesis or hematochezia. OBJECTIVE: VITAL SIGNS: Blood pressure 159/72, respirations 18, pulse 84, temperature 98.4. HEENT: Head is normocephalic. NECK: Supple. HEART: Regular rate. LUNGS: Showed diminished breath sounds at the base. ABDOMEN: Soft, nontender to palpation. No rebound or guarding. EXTREMITIES: Negative for clubbing or cyanosis. Trace edema. DERMATOLOGIC: No rashes. MUSCULOSKELETAL: Have no joint effusion. NEUROLOGIC: No change in exam. MEDICATIONS: The patient's medications have been reviewed. LABORATORY DATA: Shows sodium 133, potassium 2.6, chloride 102, BUN 18, creatinine 1.74. White cou nt 10.3, hemoglobin 9.2, hematocrit 38.4, platelet count 208. ASSESSMENT AND PLAN: 1. Sepsis. Underlying source is unclear, possible pneumonia, possible urinary tract infection. Th e patient is clinically improving with antibiotic therapy. Will continue. Follow up cultures. Fol low up with infectious disease. 2. Atrial fibrillation. Currently rate controlled. Continue the current medical management. Appr eciate cardiology's evaluation. 3. Congestive heart failure and cardiomyopathy. Continue the current medical management. Follow u p with cardiology. 4. End stage renal disease. The patient had hemodialysis yesterday and tolerated it well. Plan fo r an additional dialysis today for ultrafiltration. 5. Diabetes. Continue Accu-Cheks and insulin sliding scale. 6. Anemia of chronic disease. Continue to monitor hemoglobin and hematocrit levels. 7. Mineral bone disorder. Continue to monitor calcium and phosphorus levels. 8. History of coronary artery disease. Continue medical management. 9. History of peripheral vascular disease. Continue Trental. 10. Hypertension. Continue the current blood pressure regimen. 11. Gastroesophageal and deep vein thrombosis prophylaxis. Continue proton pump inhibitor and sequ ential leg squeezers. Dictated By: ÁNGEL GOLDBERG/ANGIE Conf#: [id number] DID#: [id number]
[2016-06-23 10:32] LABS: ALBUMIN 2.8 g/dl (3.3-4.9)
[2016-06-23 10:33] LABS: POTASSIUM 3.7 mmol/L (3.5-5.1)
[2016-06-23 10:35] LABS: ALBUMIN/GLOBULIN RATIO 0.87; BILIRUBIN,INDIRECT 0.6 mg/dl (0-1.1); BILIRUBIN,TOTAL 0.6 mg/dl (0.2-1.3); CREATININE 1.86 mg/dl (0.44-1.00)
[2016-06-23 10:36] LABS: CALCIUM 8.9 mg/dl (8.4-10.2)
[2016-06-23 10:37] LABS: INR 1.08; PT RATIO 1.1
[2016-06-23 10:43] LABS: CK-MB 1.49 ng/ml (0.0-2.4)
[2016-06-23 10:52] LABS: TROPONIN-I 0.377 ng/ml (0.00-0.12)
[2016-06-23] MEDS ORDERED: VANCOMYCIN IV PER PHARMACY XX SCH (11:00)
[2016-06-23] MEDS ORDERED: GENTAMICIN IV PER PHARMACY XX SCH (11:00)
--- NOTE | 2016-06-23 11:25 | CONS ---
Date/Time of Note Date/Time of Note DATE: 06/23/16 TIME: 10:56 Assessment/Plan Assessment/Plan Chief Complaint/Hosp Course ID PROGRESS NOTE ABX DAY #2=> Vanco IV (06/22) +Gent IV (06/23) + IV Steroids s/p Zosyn 06/22 in ED 24H INTERVAL SUMMARY * Awake, alert, resting feels better after HD yesterday -- no fevers, WBC normalized * She was admitted with acute SOB in setting pulmonary fluid overload + Afib w/ RVR + Chest pain -- she was given IV ABX in the ED for concern sepsis unknown etiology presenting with low grade temp, significant leukocytosis with risk factors being indwelling HD catheter right chest and possible HCAP vs UA (+)for YEAST & bacteria and pyuria. * CXR 06/22/16 FINDINGS: * New right internal jugular double-lumen catheter is seen with tip likely in the right atrium. Cardiomegaly is seen. Pulmonary vascular congestion with probable interstitial edema. Left lower lobe infiltrate or edema is seen, fairly extensive. Small to moderate left pleural effusion. No right pleural effusion. Fluid is seen in the minor fissure. * IMPRESSION:Probable diffuse congestive heart failure. Infectious alveolar infiltrate of the left lower lobe is not excluded. Left pleural effusion. * INITIAL ED VITALS: HR 156 B/P 248/133 , TEMP 97.9 with significant leukocytosis @ 27,000, w/elevated BNP 134,000 * She has chest congestion w/cough PHYSICAL EXAMINATION: GENERAL: 60 yo F stable on supplemental O2, calm, NAD, communicative, feels better HEENT: AT, NC, anicteric, EOMsI, no oral thrush NECK: Supple, trachea midline. CHEST: Rise symmetrical, (+) chest congested coughing w/deep inspiration, Right chest HD catheter in place HEART: Pulse RRR -- Tachy ABDOMEN: Soft, non-tender EXTREMITIES: Warm, dry, no edema SKIN: Intact Neuro: Grossly intact ID ASSESSMENT 60 yo F w/PMHx of HTN, DM, prior HI, ESRD-HD via right chest HD catheter present on admission seen in ED bed #3 earlier today with: 1. SIRS vs early sepsis on admission w/T 97.9, elevated lactic acid to 1.7, significant leukocytosis 27,000, tachycardia, tachypnea =>RESOLVED * DDx: HD Line sepsis vs HCAP vs UTI 2. Acute chest pain in setting fluid overload, Afib w/RVR,, HTN urgency, respiratory distress associated w/hypoxia, cough, chest congestion. * (+)Troponin bump 0.377, Acute fluid overload status -- CHF w/elevated BNP in setting Afib w/RVR 3. Acute bronchopneumonia, with LLL infiltrate on CXR - HCAP per HD unit status OP 4. UA(+) Pyuria >50 w/2+ LeukEsterase, (+)bacteria, (+)YEAST, (+)Microscopic hematuria * 06/22 Urine Cx (-)24H ( ) MRSA Nares-> Will screen INVASIVES: PIV ABX ALLERGY: KNDA CURRENT ABX: ABX DAY #2=>Vanco IV + Levaquin + GENT + Diflucan s/p Zosyn ID RECOMMENDATIONS 1.She has improved with HD, stable, no fevers, leukocytosis resolved 2. Sputum for C&S & MRSA nares screen pending, final urine cx pending -> f/u 3. Continue Vanco IV + added GENT for concern UTI and HD line source. 4. Levaquin renal dose for concern HCAP 5. Short course Diflucan for (+)Many Yeast present on UA -- suspect urostasis * Will f/u tomorrow -- if she has improved, anticipate DC home when cleared by primary with short course ABX ~5 days as long as BCx (-) . Problems: Consultation Date/Type/Reason Admit Date/Time Jun 22, 2016 at 07:58 Exam/Review of Systems Vital Signs Vitals Vital Signs Date Time Temp Pulse Resp B/P Pulse Ox O2 Delivery O2 Flow Rate FiO2 06/23/16 08:04 83 06/23/16 07:53 Nasal Cannula 3.0 06/23/16 07:07 98.4 18 159/72 98 06/22/16 07:30 60 Intake and Output 06/22/16 06/22/16 06/23/16 15:00 23:00 07:00 Intake Total 400 ml 200 ml Output Total 5400 ml 200 ml Balance -5000 ml 0 ml Results Result Diagram: 06/23/16 0650 06/23/16 0948 Results 24 hrs Laboratory Tests Test 06/22/16 13:20 06/22/16 16:43 06/22/16 18:42 06/22/16 21:43 Lactic Acid Level 0.8 Bedside Glucose 140 113 121 Test 06/23/16 00:41 06/23/16 06:50 06/23/16 08:39 06/23/16 09:48 Bedside Glucose 152 140 White Blood Count 10.3 # Red Blood Count 3.53 L Hemoglobin 9.2 L Hematocrit 30.4 L Mean Corpuscular Volume 86.1 Mean Corpuscular Hemoglobin 26.1 L Mean Corpuscular Hemoglobin Concent 30.3 L Red Cell Distribution Width 15.7 H Platelet Count 208 # Mean Platelet Volume 10.0 Neutrophils % 69.2 Lymphocytes % 16.0 Monocytes % 9.0 Eosinophils % 5.1 Basophils % 0.3 Nucleated Red Blood Cells % 0.0 Neutrophils # 7.1 Lymphocytes # 1.7 Monocytes # 0.9 Eosinophils # 0.5 Basophils # 0.0 Nucleated Red Blood Cells # 0.0 Sodium Level 133 L 135 Potassium Level 3.6 3.7 Chloride Level 102 98 Carbon Dioxide Level 27 27 Anion Gap 8 # 14 Blood Urea Nitrogen 18 20 Creatinine 1.74 H 1.86 H Glucose Level 144 # 226 H Calcium Level 8.7 8.9 Phosphorus Level 3.6 Magnesium Level 1.9 Prothrombin Time 14.0 Prothrombin Time Ratio 1.1 INR International Normalized Ratio 1.08 Total Bilirubin 0.6 Direct Bilirubin 0.00 Indirect Bilirubin 0.6 Aspartate Amino Transf (AST/SGOT) 44 Alanine Aminotransferase (ALT/SGPT) 47 Alkaline Phosphatase 107 Creatine Kinase 31 Creatine Kinase Index 4.8 Creatinine Kinase MB (Mass) 1.49 Troponin I 0.377 *H Total Protein 6.0 #L Albumin 2.8 L Globulin 3.20 Albumin/Globulin Ratio 0.87 Thyroid Stimulating Hormone (TSH) Pending Digoxin Level < 0.4 L Medications Medications Current Medications Aspirin (Aspirin) 325 mg DAILY PO Last administered on 06/23/16 08:43; Admin Dose 325 MG; Start 06/23/16 at 09:00 Atorvastatin Calcium (Lipitor) 40 mg QHS PO Last administered on 06/22/16 22: 00; Admin Dose 40 MG; Start 06/22/16 at 21:00 Carvedilol (Coreg) 12.5 mg BID PO Last administered on 06/23/16 08:43; Admin Dose 12.5 MG; Start 06/22/16 at 21:00 Clonidine (Catapres) 0.2 mg Q8 PO Last administered on 06/22/16 22:01; Admin Dose 0.2 MG; Start 06/22/16 at 14:00 Clopidogrel Bisulfate (plaVIX) 75 mg DAILY PO Last administered on 06/23/16 08 :45; Admin Dose 75 MG; Start 06/23/16 at 09:00 Ferrous Sulfate (Ferrous Sulfate (Ec)) 325 mg BID PO Last administered on 08:44; Admin Dose 325 MG; Start 06/22/16 at 21:00 Isosorbide Mononitrate (Imdur) 60 mg DAILY PO Last administered on 06/23/16 08 :45; Admin Dose 60 MG; Start 06/23/16 at 09:00 Nifedipine (Procardia Xl) 30 mg BID PO Last administered on 06/23/16 08:45; Admin Dose 30 MG; Start 06/22/16 at 21:00; Status Future hold Pentoxifylline (Trental) 400 mg DAILY PO Last administered on 06/23/16 08:45; Admin Dose 400 MG; Start 06/23/16 at 09:00 Miscellaneous Information 1 ea NOTE XX ; Start 06/22/16 at 12:30 Glucose (Glutose) 15 gm Q15M PRN PO DECREASED GLUCOSE; Start 06/22/16 at 12:30 Glucose (Glutose) 22.5 gm Q15M PRN PO DECREASED GLUCOSE; Start 06/22/16 at 12: 30 Dextrose (D50w Syringe) 25 ml Q15M PRN IV DECREASED GLUCOSE; Start 06/22/16 at 12:30 Dextrose (D50w Syringe) 50 ml Q15M PRN IV DECREASED GLUCOSE; Start 06/22/16 at 12:30 Glucagon (Glucagen) 1 mg Q15M PRN IM DECREASED GLUCOSE; Start 06/22/16 at 12:30 Glucose (Glutose) 15 gm Q15M PRN BUCCAL DECREASED GLUCOSE; Start 06/22/16 at 12 :30 Insulin Glargine (Lantus) 10 unit QHS SC Last administered on 06/23/16 00:44; Admin Dose 10 UNIT; Start 06/22/16 at 21:00 Lisinopril (Zestril) 20 mg DAILY PO Last administered on 06/23/16 09:59; Admin Dose 20 MG; Start 06/23/16 at 09:00 AGUSTIN IRELAND NP Jun 23, 2016 11:09
[2016-06-23] MEDS ORDERED: FLUCONAZOLE 200 MG/NS (PMX) 100 ML IVPB ONE (12:00)
[2016-06-23 13:29] LABS: THYROID STIMULATING HORMONE 1.22 MIU/L (0.465-4.680)
[2016-06-23] MEDS: GENTAMICIN 120 MG/NS (PMX) 100 ML IVPB ONE ×2 (14:59→16:38)
[2016-06-23 15:00] LABS: CK-MB 1.48 ng/ml (0.0-2.4)
[2016-06-23] MEDS: ATORVASTATIN 40 MG TAB PO SCH (21:42)
[2016-06-24] VITALS (30 sets, daily range): BP systolic 108–147; BP diastolic 51–72; PULSE 79–90; RESP 10–20
[2016-06-24] MEDS ORDERED: GENTAMICIN 60 MG in SOD CHLORIDE 0.9% 50 ML IVPB SCH (06:00)
[2016-06-24 06:46] LABS: ADD SCAN DIFF NO
[2016-06-24 06:54] LABS: BASOPHILS % 0.4 % (0.0-2.0); EOSINOPHILS # 0.4 10^3/ul (0.0-0.5); EOSINOPHILS % 5.7 % (0.0-7.0); HEMATOCRIT 31.2 % (37.0-47.0); HEMOGLOBIN 9.4 g/dl (12.0-16.0); LYMPHOCYTES # 1.1 10^3/ul (0.8-2.9); LYMPHOCYTES % 14.9 % (15.0-51.0); MEAN CORPUSCULAR HEMOGLOBIN 25.9 pg (29.0-33.0); MEAN CORPUSCULAR HGB CONC 30.1 g/dl (32.0-37.0); MEAN PLATELET VOLUME 9.8 fl (7.4-10.4); MONOCYTE # 0.8 10^3/ul (0.3-0.9); MONOCYTES % 10.6 % (0.0-11.0); NEUTROPHIL # 4.8 10^3/ul (1.6-7.5); PLATELET COUNT 225 10^3/UL (140-415); RED BLOOD COUNT 3.63 10^6/ul (4.20-5.40); RED CELL DISTRIBUTION WIDTH 15.3 % (11.5-14.5); WHITE BLOOD COUNT 7.1 10^3/ul (4.8-10.8)
[2016-06-24 07:08] LABS: POTASSIUM 3.4 mmol/L (3.5-5.1)
[2016-06-24 07:11] LABS: CREATININE 2.02 mg/dl (0.44-1.00); PHOSPHORUS 3.5 mg/dl (2.5-4.9)
[2016-06-24 07:12] LABS: ALBUMIN 2.8 g/dl (3.3-4.9); ALBUMIN/GLOBULIN RATIO 0.82; BILIRUBIN,INDIRECT 0.4 mg/dl (0-1.1); BILIRUBIN,TOTAL 0.4 mg/dl (0.2-1.3); CALCIUM 8.8 mg/dl (8.4-10.2); CREATININE 2.03 mg/dl (0.44-1.00); MAGNESIUM 1.9 mg/dl (1.7-2.5); POTASSIUM 3.3 mmol/L (3.5-5.1); TOTAL PROTEIN 6.2 g/dl (6.1-8.1)
[2016-06-24 07:21] LABS: CK-MB 0.54 ng/ml (0.0-2.4)
[2016-06-24 07:22] LABS: TROPONIN-I 0.266 ng/ml (0.00-0.12)
--- NOTE | 2016-06-24 07:58 | PN ---
DATE: 06/23/2016 CARDIOLOGY FOLLOWUP SUBJECTIVE: Patient with no chest pain or pressure, no palpitations, wants to go home. Denies shor tness of breath or dyspnea to me. MEDICATIONS: Reviewed, which include: 1. Aspirin. 2. Plavix. 3. Imdur. 4. Trental. 5. Lipitor. 6. Coreg 12.5 b.i.d. 7. Iron. 8. Nifedipine. 9. Clonidine. PHYSICAL EXAMINATION: VITAL SIGNS: Temperature 98.4, heart rate of 84, blood pressure 150/72, respirations 18, saturating 98%. HEENT: Normocephalic, atraumatic. Pupils are equal. CARDIOVASCULAR: Regular rate and rhythm, systolic murmur. PULMONARY: With no wheezes heard, mild rhonchi at the base. GASTROINTESTINAL: Soft, nontender. EXTREMITIES: Positive edema. NEUROLOGIC: Awake, responds appropriately. PSYCHIATRIC: Appears to be calm. LABORATORY: Sodium 132, potassium 3.6, BUN of 18, creatinine 1.74, glucose of 144. Magnesium is 1. 9. Echocardiogram was personally reviewed, shows severe LV dysfunction, EF 25% to 30% with ____ wal l motion abnormalities. ASSESSMENT AND PLAN: 1. Paroxysmal atrial fibrillation with rapid ventricular response, currently back in sinus rhythm. 2. Cardiomyopathy, most likely coronary artery disease. 3. Probable history of PCI, although the patient is unable to provide this history to me. 4. Renal failure on dialysis. 5. Diabetes. 6. Dyslipidemia. RECOMMENDATIONS: We will continue with aspirin and Plavix. Imdur will be continued. Statin will b e continued. I will start the patient on ROSARIO inhibitor as well. Continue with the Coreg. Consider medical therapy. Dialysis as per renal. Dictated By: FREDERICK HANSEN/ANGIE Conf#: [id number] DID#: [id number]
[2016-06-24] MEDS: INSULIN ASPART [NOVOLOG] 3 ML PEN SC SCH ×4 (08:25→21:00)
[2016-06-24] MEDS: POTASSIUM CHLORIDE (SR) 20 MEQ TAB PO STA (08:58)
[2016-06-24] MEDS: FLUCONAZOLE 100 MG TAB PO SCH (09:00)
[2016-06-24] MEDS: ISOSORBIDE MONONITRATE(SR)60 MG TAB PO SCH (09:00)
[2016-06-24] MEDS: PENTOXIFYLLINE (SR) 400 MG TAB PO SCH (09:00)
[2016-06-24] MEDS: ASPIRIN 325 MG TAB PO SCH ×2 (09:00→14:49)
[2016-06-24] MEDS: LISINOPRIL 20 MG TAB PO SCH (09:00)
[2016-06-24] MEDS: FERROUS SULFATE (EC) 325 MG TAB PO SCH ×2 (09:00→21:09)
[2016-06-24] MEDS: CLOPIDOGREL 75 MG TAB PO SCH ×2 (09:00→14:50)
[2016-06-24] MEDS: NIFEdipine (XL) 30 MG TAB PO SCH ×2 (09:00→21:11)
--- NOTE | 2016-06-24 09:36 | PN ---
DATE: SUBJECTIVE: The patient is stable. No acute events noted. No hemoptysis, hematemesis or hematoche karina. The patient has remained afebrile. OBJECTIVE: VITAL SIGNS: Blood pressure 125/61, respirations 18, pulse 71, temperature 98.0. HEENT: Head is normocephalic. NECK: Supple. HEART: Regular rate. LUNGS: Showed diminished breath sounds at the base. ABDOMEN: Soft, nontender to palpation. No rebound or guarding. EXTREMITIES: Negative for clubbing or cyanosis. No edema. DERMATOLOGIC: No rashes. MUSCULOSKELETAL: Have no joint effusion. NEUROLOGIC: No change in exam. MEDICATIONS: The patient's medications have been reviewed. LABORATORY DATA: Shows a white count of 7.1, hemoglobin 9.4, hematocrit 31.2, platelet count 225. Sodium 137, potassium 3.3, chloride 105, BUN 18, creatinine 2.03. ASSESSMENT AND PLAN: 1. Sepsis. Underlying source unclear, possible pneumonia, possible urinary tract infection. Rule out line infection. The patient's white count has improved after starting antibiotic therapy. The patient's cultures have been negative after 24 hours. Plan at this point is to continue to monitor blood cultures for another 24 to 48 hours. If they remain negative, the patient will likely be able to be discharged, with a short course of oral antibiotics. If blood culture remain positive, may r equire line removal. Will monitor closely. 2. Atrial fibrillation. Currently rate controlled. Continue medical management. Follow up with c ardiology. 3. Congestive heart failure and cardiomyopathy. Continue the current treatment plan. Continue ult rafiltration dialysis. 4. End-stage renal disease. The patient is on dialysis Monday, Monday, and Monday. The patient will have dialysis again today. 5. Diabetes. Continue the current insulin regimen. 6. Anemia of chronic disease. Continue to monitor hemoglobin and hematocrit levels. 7. Mineral bone disorder. Continue to monitor calcium and phosphorus levels. 8. Coronary artery disease. Continue medical management. 9. Peripheral vascular disease. The patient is on Trental. 10. Hypertension. Improving. Continue ultrafiltration dialysis. Continue the current blood pressu re regimen. 11. Gastrointestinal and deep venous thrombosis prophylaxis. Continue proton pump inhibitors and s equential leg squeezers. Dictated By: ÁNGEL GOLDBERG/ANGIE Conf#: [id number] [facility]#: [id number]
[2016-06-24] MEDS ORDERED: VANCOMYCIN 1.25 GM in SOD CHLORIDE 0.9% 250 ML IVPB SCH (14:00)
[2016-06-24] MEDS ORDERED: LIDOCAINE 1% (MDV) 20 ML INJ ONE (15:05)
[2016-06-24] MEDS ORDERED: HEPARIN 1000 UNITS/NS (A-LINE) 1,000 ML ONE (15:06)
[2016-06-24] MEDS ORDERED: MIDAZOLAM 1 MG/ML 2 ML INJ ONE (15:06)
[2016-06-24] MEDS ORDERED: FENTAnyl 50 MCG/ML VIAL ONE (15:06)
[2016-06-24] MEDS ORDERED: IODIXANOL LOCM 100 ML BTL ONE ×2 (15:06→15:46)
--- NOTE | 2016-06-24 15:10 | RADRPT ---
PROCEDURE: XR Chest. CLINICAL INDICATION: Shortness of breath. TECHNIQUE: A single portable view of the chest was obtained. COMPARISON: 06/22/2016 FINDINGS: The right-sided hemodialysis catheter is unchanged. The aorta is tortuous and atherosclerotic. The cardiomediastinal silhouette is otherwise enlarged and is stable. Diffuse pulmonary vascular conge stion is seen with likely underlying pulmonary edema and is decreased. Again seen is a moderate size left pleural effusion which is slightly improved. Improved aeration in the right lung base is seen . The soft tissues and osseous structures demonstrate benign age related senescent changes. IMPRESSION: Radiographic findings of congestive heart failure again seen which is improved. RPTAT: HPNM Physician Damian Date Time Electronically viewed and signed by Physician Damian on 06/24/2016 15:10 /
--- NOTE | 2016-06-24 15:21 | PN ---
DATE: 06/24/2016 CARDIOLOGY FOLLOWUP SUBJECTIVE: The patient remains in sinus rhythm. No chest pain or pressure. No palpitation. Disc ussed with her son extensively. The patient's troponins became positive yesterday, repeat troponin also has been elevated as well. Echocardiogram was performed which showed severe LV dysfunction. D iscussed with the son again extensively who said that the patient had some sort of cardiac event a f ew months ago. He was unaware of exactly what happened. He was not sure that the patient had angio plasty and stenting done or not. She remains in sinus rhythm. MEDICATIONS: Reviewed. PHYSICAL EXAMINATION: VITAL SIGNS: Temperature 98, heart rate of 85, blood pressure 130/52, respiration rate of 20, satur ating 98%. HEENT: Normocephalic, atraumatic. Pupils are equal. NECK: Oropharynx with poor dentition. CARDIOVASCULAR: Regular rate and rhythm, systolic murmur. PULMONARY: With no wheezes anteriorly, mild rhonchi at the base. GASTROINTESTINAL: Soft, nontender. EXTREMITIES: Trivial edema. NEUROLOGIC: Awake and alert. Responds appropriately. PSYCHIATRIC: Appears to be calm. LABORATORY: Sodium 137, potassium 3.3, BUN of 18, creatinine of 2.03, glucose 118, ALT of 53. Trop onin 0.266. Albumin is 2.8. Echocardiogram was personally reviewed, which shows severe LV dysfunct ion, ejection fraction estimated about 25%. There are multiple wall motion abnormalities consistent with anterior infarct/ischemia. Troponin was 0.266. Peak troponin was 0.377. ASSESSMENT AND PLAN: 1. Acute coronary syndrome. 2. Paroxysmal atrial fibrillation with rapid ventricular response. 3. Severe cardiomyopathy, most likely ischemic cardiomyopathy, ejection fraction 25%. 4. Congestive heart failure. 5. Hypertension. 6. Renal failure on dialysis. 7. Dyslipidemia. RECOMMENDATIONS: I had a lengthy discussion with the patient and her son in detail. I recommended her to undergo left heart catheterization, coronary angiography with possible percutaneous coronary intervention. Risks, benefits and alternatives discussed with the patient in detail. Discussed al so with the son in detail. This included infection, vascular complication, bleeding complication, M I, stroke, arrhythmia, , renal failure discussed with them in detail. Increased risk of compli cation due to her multiple comorbidities including renal failure and cardiomyopathy and acute OH dis cussed with them have consented to procedure. We will proceed with the procedure today. Dictated By: FREDERICK HANSEN/ANGIE Conf#: [id number] DID#: [id number]
[2016-06-24] MEDS ORDERED: VERAPAMIL 5 MG INJ ONE (15:43)
[2016-06-24] MEDS ORDERED: NITROGLYCERIN (IC) 100 MCG/ML INJ ONE (15:43)
[2016-06-24] MEDS ORDERED: BIVALIRUDIN 250MG /NS 50 ML 50 ML IVPB ONE (15:46)
[2016-06-24] MEDS ORDERED: IOHEXOL 350MG/ML 50 ML BTL ONE (15:47)
[2016-06-24] MEDS ORDERED: CLOPIDOGREL 300 MG TAB ONE (17:09)
[2016-06-24] MEDS ORDERED: SOD CHLORIDE 0.9% 1,000 ML IV SCH (17:30)
--- NOTE | 2016-06-24 18:14 | SP ---
DATE OF PROCEDURE: 06/24/2016 PROCEDURE PERFORMED: 1. Left heart catheterization, selective right and left coronary angiography. 2. Very complicated but successful PTCA stenting of the proximal and mid left anterior descending a rtery. 3. Angioplasty of the diagonal branch. 4. Unsuccessful PCI of the chronic total occlusion of the right posterior descending artery. 5. Right femoral angiogram. 6. Left ventriculogram. 7. Conscious sedation/moderate sedation and observation for more than 120 minutes. SURGEON: Frederick Rodriguez MD CLINICAL INDICATIONS: This is a 60-year-old female who presented with non-ST elevation myocardial i nfarction. The patient also with severe cardiomyopathy. Because of the above, she was recommended to undergo diagnostic angiography. FINDINGS: 1. Left main coronary is a short vessel, no significant stenosis noted. 2. Left anterior descending artery has stenosis at the apex with a sharp angulation at the ostium, about a 50% lesion there. Proximally about 60% lesion mid level, right after the diagonal has 90% s tenosis. After successful PTCA stenting of this lesion, no significant residual stenosis left. The diagonal itself has about 50% to 60% ostial stenosis. After angioplasty and stenting of the LAD, it has 95% stenosis. After kissing balloon angioplasty of the LAD diagonal, there was less than 20% residual stenosis left at the ostium of the diagonal. 3. Left circumflex is a large vessel. The first obtuse marginal is a very small vessel, about 2 mm , with about 70% ostial and 90% mid lesion. Second obtuse marginal is a large vessel with about 60% to 70% stenosis. 4. Ramus is a small vessel with 20% stenosis. 5. Right coronary is a dominant vessel. It has diffuse 50% stenosis. PDA was completely occluded at the very proximal portion. Multiple attempts to try to cross this lesion were unsuccessful, cons istent with chronic total occlusion of the PDA. 6. LV systolic pressure was 136. LVEDP is 6. DESCRIPTION OF PROCEDURE: Written informed consent was discussed with the patient and her son in de tail. The patient was brought in to quality control lab technician and placed in the supine position. Right and left gr oins were prepped and draped in a sterile fashion. The right groin area was anesthetized with 1% li docaine. Using modified Seldinger technique, a 6-Citizen Of [place] sheath was placed in the right femoral christian ry. Right femoral angiogram was performed. JL4 catheter was advanced and engaged the left main cor onary artery. Angiogram was obtained. JR4 catheter was advanced and engaged the right coronary art chiki. Angiogram was obtained. Pigtail was advanced and engaged in the left ventricle. Hemodynamics recorded. Pullback aortic pressure was measured. At this time, I was not sure if the PDA lesion was an acute on chronic. We decided to perform PCI o f this lesion to see if the wire would cross. AL 0.75 guiding catheter was advanced and engaged in the right coronary artery. I used a different wire and coarser catheter including Light Oil Operator 50, Light Oil Operator 2 00 and a Fielder XT to try to cross the lesion. The wire could not cross the lesion, consistent wit h a chronic total occlusion of this lesion. It was also a small vessel. I decided since this is a small vessel with a chronic total occlusion, we will treat it medically. Catheter and Glidewire wer e removed. Changed the guide to a JL3.5 guiding catheter and advanced in the left main coronary artery. I trie d to use multiple wires to try to cross into the LAD. Because of the sharp angulation of the lesion , this was unsuccessful. I then used Kennedy catheter to help assist but because of the angulation, it was unsuccessful. Finally, I changed the guide to a JL3 diagnostic guide and with that, it was t he most likely to engage in the left anterior descending artery and I advanced the wire through the distal LAD. A 2.5 noncompliant balloon was placed across the lesion, inflated. Angiogram was obta ined. The diagonal itself appeared to have lesion too. I crossed this one as well and dilated this vessel as well to try to avoid closing off the diagonal branch. Then, I used a 2.5 x 28 mm Synergy drug-eluting stent. It was placed across the lesion and deployed it at 14 atmospheres. Angiogram w as obtained. It appeared that the diagonal was jailed. The 3.0 balloon was used and postdilated th e proximal portion of the LAD stent. Angiogram was obtained. Then, the wire from the diagonal was removed and recrossed into the diagonal through the struts of stent. A 2.0 balloon was placed acros s the lesion and inflated. The same 3.0 balloon was placed across the LAD stent. Angiogram was obt ained. Still significant residual stenosis was noted in the diagonal. Finally, I used a kissing ba lloon angioplasty to both the LAD and diagonal with a 2.0 in the diagonal and the 3.0 in the LAD. F inal angiogram was obtained which showed BREANNA 3 flow, no evidence of dissection, no significant resi dual stenosis at the site of the LAD stent and less than 20% residual stenosis at the ostium of diag onal. Catheter and Glidewire were removed. Angiomax was stopped. The patient tolerated the proced ure without complication. The patient is transferred to recovery in stable condition. IMMEDIATE COMPLICATIONS: None. TOTAL CONTRAST USED: 180 mL contrast. CONCLUSION: Successful percutaneous transluminal coronary angioplasty and stenting of the left ante rior descending and diagonal. RECOMMENDATIONS: Aggressive medical therapy. Aspirin indefinitely. Plavix for a minimum of the ne xt 1 year. We will consider PCI of the obtuse marginal if the patient has recurrent anginal chest p ain. Dictated By: FREDERICK HANSEN/ANGIE Conf#: [id number] DID#: [id number] CC: ÁNGEL HARDING DO;*EndCC*
--- NOTE | 2016-06-24 18:30 | CONS ---
Date/Time of Note Date/Time of Note DATE: 06/24/16 TIME: 18: Assessment/Plan Assessment/Plan Chief Complaint/Hosp Course ID PROGRESS NOTE ABX DAY #3 => Vanco IV (06/22) +Gent IV (06/23) Levaquin + Diflucan + IV Steroids s/p Zosyn 06/22 in ED 24H INTERVAL SUMMARY * Lethargic, feeling much better, no fevers, WBC normal, O2 via NC * CXR 06/24: IMPRESSION:Radiographic findings of congestive heart failure again seen which is improved. PHYSICAL EXAMINATION: GENERAL: 60 yo F stable on supplemental O2, calm, NAD, communicative, feels better HEENT: AT, NC, anicteric, EOMsI, no oral thrush NECK: Supple, trachea midline. CHEST: Rise symmetrical, (+) chest congested coughing w/deep inspiration, Right chest HD catheter in place HEART: Pulse RRR -- Tachy ABDOMEN: Soft, non-tender EXTREMITIES: Warm, dry, no edema SKIN: Intact Neuro: Grossly intact ID ASSESSMENT 60 yo F w/PMHx of HTN, DM, prior MT, ESRD-HD via right chest HD catheter present on admission seen in ED bed #3 earlier today with: 1. SIRS vs early sepsis on admission w/T 97.9, elevated lactic acid to 1.7, significant leukocytosis 27,000, tachycardia, tachypnea =>RESOLVED * DDx: HD Line sepsis vs HCAP vs UTI 2. Acute chest pain in setting fluid overload, Afib w/RVR,, HTN urgency, respiratory distress associated w/hypoxia, cough, chest congestion. * (+)Troponin bump 0.377, Acute fluid overload status -- CHF w/elevated BNP in setting Afib w/RVR 3. Acute bronchopneumonia, with LLL infiltrate on CXR - HCAP per HD unit status OP 4. UA(+) Pyuria >50 w/2+ LeukEsterase, (+)bacteria, (+)YEAST, (+)Microscopic hematuria * 06/22 Urine Cx (-)24H ( ) MRSA Nares-> Will screen INVASIVES: PIV ABX ALLERGY: KNDA CURRENT ABX: ABX DAY #2=>Vanco IV + Levaquin + GENT + Diflucan s/p Zosyn ID RECOMMENDATIONS 1.She has improved with HD, stable, no fevers, leukocytosis resolved 2.Vanco IV + GENT for concern UTI and HD line source = > likely DC ABX after next HD 4. Levaquin renal dose for concern HCAP 5. Short course Diflucan for (+)Many Yeast present on UA -- suspect urostasis * Anticipate DC OFF ABX . . Problems: Consultation Date/Type/Reason Admit Date/Time Jun 22, 2016 at 07:58 Exam/Review of Systems Vital Signs Vitals Vital Signs Date Time Temp Pulse Resp B/P Pulse Ox O2 Delivery O2 Flow Rate FiO2 06/24/16 18:05 81 06/24/16 18:04 14 139/65 95 Room Air 06/24/16 17:44 98.0 06/24/16 08:00 3.0 06/22/16 07:30 60 Intake and Output 06/23/16 06/23/16 06/24/16 15:00 23:00 07:00 Intake Total 500 ml 550 ml 480 ml Output Total 3500 ml 100 ml 0 ml Balance -3000 ml 450 ml 480 ml Results Result Diagram: 06/24/16 0536 06/24/16 0536 Results 24 hrs Laboratory Tests Test 06/23/16 22:13 06/24/16 02:50 06/24/16 05:36 06/24/16 08:16 Bedside Glucose 227 H 126 147 White Blood Count 7.1 # Red Blood Count 3.63 L Hemoglobin 9.4 L Hematocrit 31.2 L Mean Corpuscular Volume 86.0 Mean Corpuscular Hemoglobin 25.9 L Mean Corpuscular Hemoglobin Concent 30.1 L Red Cell Distribution Width 15.3 H Platelet Count 225 Mean Platelet Volume 9.8 Neutrophils % 68.0 Lymphocytes % 14.9 L Monocytes % 10.6 Eosinophils % 5.7 Basophils % 0.4 Nucleated Red Blood Cells % 0.0 Neutrophils # 4.8 Lymphocytes # 1.1 Monocytes # 0.8 Eosinophils # 0.4 Basophils # 0.0 Nucleated Red Blood Cells # 0.0 Sodium Level 137 Potassium Level 3.3 L Chloride Level 105 Carbon Dioxide Level 30 Anion Gap 5 #L Blood Urea Nitrogen 18 Creatinine 2.03 H Glucose Level 118 Calcium Level 8.8 Phosphorus Level 3.5 Magnesium Level 1.9 Total Bilirubin 0.4 Direct Bilirubin 0.00 Indirect Bilirubin 0.4 Aspartate Amino Transf (AST/SGOT) 39 Alanine Aminotransferase (ALT/SGPT) 53 Alkaline Phosphatase 111 Creatine Kinase 20 L Creatine Kinase Index 2.7 Creatinine Kinase MB (Mass) 0.54 Troponin I 0.266 *H Total Protein 6.2 Albumin 2.8 L Globulin 3.40 H Albumin/Globulin Ratio 0.82 Random Vancomycin Level 7.3 Test 06/24/16 12:22 06/24/16 17:55 Bedside Glucose 106 103 Medications Medications Current Medications Atorvastatin Calcium (Lipitor) 40 mg QHS PO Last administered on 06/23/16 21: 42; Admin Dose 40 MG; Start 06/22/16 at 21:00 Carvedilol (Coreg) 12.5 mg BID PO Last administered on 06/23/16 21:42; Admin Dose 12.5 MG; Start 06/22/16 at 21:00 Clonidine (Catapres) 0.2 mg Q8 PO Last administered on 06/23/16 21:42; Admin Dose 0.2 MG; Start 06/22/16 at 14:00 Clopidogrel Bisulfate (plaVIX) 75 mg DAILY PO Last administered on 06/24/16 14 :50; Admin Dose 75 MG; Start 06/23/16 at 09:00 Ferrous Sulfate (Ferrous Sulfate (Ec)) 325 mg BID PO Last administered on 21:42; Admin Dose 325 MG; Start 06/22/16 at 21:00 Isosorbide Mononitrate (Imdur) 60 mg DAILY PO Last administered on 06/23/16 08 :45; Admin Dose 60 MG; Start 06/23/16 at 09:00 Nifedipine (Procardia Xl) 30 mg BID PO Last administered on 06/23/16 21:42; Admin Dose 30 MG; Start 06/22/16 at 21:00; Status Future hold Pentoxifylline (Trental) 400 mg DAILY PO Last administered on 06/23/16 08:45; Admin Dose 400 MG; Start 06/23/16 at 09:00 Miscellaneous Information 1 ea NOTE XX ; Start 06/22/16 at 12:30 Glucose (Glutose) 15 gm Q15M PRN PO DECREASED GLUCOSE; Start 06/22/16 at 12:30 Glucose (Glutose) 22.5 gm Q15M PRN PO DECREASED GLUCOSE; Start 06/22/16 at 12: 30 Dextrose (D50w Syringe) 25 ml Q15M PRN IV DECREASED GLUCOSE; Start 06/22/16 at 12:30 Dextrose (D50w Syringe) 50 ml Q15M PRN IV DECREASED GLUCOSE; Start 06/22/16 at 12:30 Glucagon (Glucagen) 1 mg Q15M PRN IM DECREASED GLUCOSE; Start 06/22/16 at 12:30 Glucose (Glutose) 15 gm Q15M PRN BUCCAL DECREASED GLUCOSE; Start 06/22/16 at 12 :30 Insulin Glargine (Lantus) 10 unit QHS SC Last administered on 06/23/16 22:22; Admin Dose 10 UNIT; Start 06/22/16 at 21:00 Lisinopril (Zestril) 20 mg DAILY PO Last administered on 06/23/16 09:59; Admin Dose 20 MG; Start 06/23/16 at 09:00 Gentamicin Sulfate (Gentamicin Iv Per Pharmacy) GENTAMICIN PER PHARMACY NOTE XX ; Start 06/23/16 at 11:00 Fluconazole (Diflucan) 100 mg DAILY PO ; Start 06/24/16 at 09:00; Stop 06/27/16 at 08:59 Aspirin (Halfprin) 81 mg DAILY PO ; Start 06/25/16 at 09:00 AGUSTIN IRELAND NP Jun 24, 2016 18:30
[2016-06-24] MEDS: INSULIN GLARGINE [LANtus] 3 ML PEN SC SCH (21:03)
[2016-06-24] MEDS: ATORVASTATIN 40 MG TAB PO SCH (21:11)
[2016-06-25] VITALS (17 sets, daily range): BP systolic 103–138; BP diastolic 53–78; PULSE 76–88; RESP 11–22
[2016-06-25 05:27] LABS: ADD SCAN DIFF NO
[2016-06-25 05:57] LABS: BASOPHILS % 0.6 % (0.0-2.0); EOSINOPHILS # 0.3 10^3/ul (0.0-0.5); EOSINOPHILS % 4.5 % (0.0-7.0); HEMATOCRIT 31.7 % (37.0-47.0); HEMOGLOBIN 9.7 g/dl (12.0-16.0); LYMPHOCYTES # 0.8 10^3/ul (0.8-2.9); LYMPHOCYTES % 10.7 % (15.0-51.0); MEAN CORPUSCULAR HEMOGLOBIN 26.5 pg (29.0-33.0); MEAN CORPUSCULAR HGB CONC 30.6 g/dl (32.0-37.0); MEAN CORPUSCULAR VOLUME 86.6 fl (82.0-101.0); MEAN PLATELET VOLUME 10.1 fl (7.4-10.4); MONOCYTE # 0.7 10^3/ul (0.3-0.9); MONOCYTES % 10.3 % (0.0-11.0); NEUTROPHIL # 5.3 10^3/ul (1.6-7.5); NEUTROPHILS % 73.3 % (39.0-77.0); PLATELET COUNT 214 10^3/UL (140-415); RED BLOOD COUNT 3.66 10^6/ul (4.20-5.40); RED CELL DISTRIBUTION WIDTH 15.6 % (11.5-14.5); WHITE BLOOD COUNT 7.2 10^3/ul (4.8-10.8)
[2016-06-25 06:01] LABS: ALBUMIN 2.8 g/dl (3.3-4.9)
[2016-06-25 06:02] LABS: POTASSIUM 3.8 mmol/L (3.5-5.1)
[2016-06-25 06:04] LABS: ALBUMIN/GLOBULIN RATIO 0.75; BILIRUBIN,INDIRECT 0.5 mg/dl (0-1.1); BILIRUBIN,TOTAL 0.5 mg/dl (0.2-1.3); CREATININE 2.52 mg/dl (0.44-1.00); TOTAL PROTEIN 6.5 g/dl (6.1-8.1)
[2016-06-25 06:08] LABS: MAGNESIUM 1.9 mg/dl (1.7-2.5); PHOSPHORUS 4.4 mg/dl (2.5-4.9)
[2016-06-25] MEDS: CLOPIDOGREL 75 MG TAB PO SCH (08:20)
[2016-06-25] MEDS: LISINOPRIL 20 MG TAB PO SCH (08:20)
[2016-06-25] MEDS: ASPIRIN (EC) 81 MG TAB PO SCH (08:20)
[2016-06-25] MEDS: FLUCONAZOLE 100 MG TAB PO SCH (08:21)
[2016-06-25] MEDS: ISOSORBIDE MONONITRATE(SR)60 MG TAB PO SCH (08:21)
[2016-06-25] MEDS: NIFEdipine (XL) 30 MG TAB PO SCH ×2 (08:22→21:23)
[2016-06-25] MEDS: FERROUS SULFATE (EC) 325 MG TAB PO SCH ×2 (08:23→21:23)
[2016-06-25] MEDS: PENTOXIFYLLINE (SR) 400 MG TAB PO SCH (08:23)
--- NOTE | 2016-06-25 09:02 | CONS ---
Date/Time of Note Date/Time of Note DATE: 06/25/16 TIME: 09:01 Consult Date/Type/Reason Admit Date/Time Jun 22, 2016 at 07:58 Initial Consult Date Subjective pt. seen and examined. s/p hd yesterday d/w dr. Nance pe: HEENT: AT, NC, anicteric, EOMsI, no oral thrush NECK: Supple, trachea midline. CHEST: Rise symmetrical, (+) chest congested coughing w/deep inspiration, Right chest HD catheter in place HEART: Pulse RRR -- Tachy ABDOMEN: Soft, non-tender EXTREMITIES: Warm, dry, no edema SKIN: Intact Neuro: Grossly intact Objective Vital Signs Date Time Temp Pulse Resp B/P Pulse Ox O2 Delivery O2 Flow Rate FiO2 06/25/16 07:30 98.3 86 19 125/58 95 Room Air 06/24/16 08:00 3.0 06/22/16 07:30 60 Intake and Output 06/24/16 06/24/16 06/25/16 14:59 22:59 06:59 Intake Total 500 ml 700 ml 270 ml Output Total 3000 ml 0 ml 150 ml Balance -2500 ml 700 ml 120 ml Results/Medications Result Diagram: 06/25/16 0510 06/25/16 0510 Results 24 hrs Laboratory Tests Test 06/24/16 12:22 06/24/16 17:55 06/25/16 05:10 06/25/16 05:17 Bedside Glucose 106 103 182 White Blood Count 7.2 Red Blood Count 3.66 L Hemoglobin 9.7 L Hematocrit 31.7 L Mean Corpuscular Volume 86.6 Mean Corpuscular Hemoglobin 26.5 L Mean Corpuscular Hemoglobin Concent 30.6 L Red Cell Distribution Width 15.6 H Platelet Count 214 Mean Platelet Volume 10.1 Neutrophils % 73.3 Lymphocytes % 10.7 L Monocytes % 10.3 Eosinophils % 4.5 Basophils % 0.6 Nucleated Red Blood Cells % 0.0 Neutrophils # 5.3 Lymphocytes # 0.8 Monocytes # 0.7 Eosinophils # 0.3 Basophils # 0.0 Nucleated Red Blood Cells # 0.0 Sodium Level 137 Potassium Level 3.8 Chloride Level 103 Carbon Dioxide Level 23 Anion Gap 15 # Blood Urea Nitrogen 24 H Creatinine 2.52 H Glucose Level 171 Calcium Level 9.0 Phosphorus Level 4.4 Magnesium Level 1.9 Total Bilirubin 0.5 Direct Bilirubin 0.00 Indirect Bilirubin 0.5 Aspartate Amino Transf (AST/SGOT) 31 Alanine Aminotransferase (ALT/SGPT) 37 Alkaline Phosphatase 108 Total Protein 6.5 Albumin 2.8 L Globulin 3.70 H Albumin/Globulin Ratio 0.75 Test 06/25/16 08:05 Bedside Glucose 180 Medications Current Medications Atorvastatin Calcium (Lipitor) 40 mg QHS PO Last administered on 06/24/16 21: 11; Admin Dose 40 MG; Start 06/22/16 at 21:00 Carvedilol (Coreg) 12.5 mg BID PO Last administered on 06/25/16 08:22; Admin Dose 12.5 MG; Start 06/22/16 at 21:00 Clonidine (Catapres) 0.2 mg Q8 PO Last administered on 06/25/16 08:21; Admin Dose 0.2 MG; Start 06/22/16 at 14:00 Clopidogrel Bisulfate (plaVIX) 75 mg DAILY PO Last administered on 06/25/16 08 :20; Admin Dose 75 MG; Start 06/23/16 at 09:00 Ferrous Sulfate (Ferrous Sulfate (Ec)) 325 mg BID PO Last administered on 08:23; Admin Dose 325 MG; Start 06/22/16 at 21:00 Isosorbide Mononitrate (Imdur) 60 mg DAILY PO Last administered on 06/25/16 08 :21; Admin Dose 60 MG; Start 06/23/16 at 09:00 Nifedipine (Procardia Xl) 30 mg BID PO Last administered on 06/25/16 08:22; Admin Dose 30 MG; Start 06/22/16 at 21:00; Status Future hold Pentoxifylline (Trental) 400 mg DAILY PO Last administered on 06/25/16 08:23; Admin Dose 400 MG; Start 06/23/16 at 09:00 Miscellaneous Information 1 ea NOTE XX ; Start 06/22/16 at 12:30 Glucose (Glutose) 15 gm Q15M PRN PO DECREASED GLUCOSE; Start 06/22/16 at 12:30 Glucose (Glutose) 22.5 gm Q15M PRN PO DECREASED GLUCOSE; Start 06/22/16 at 12: 30 Dextrose (D50w Syringe) 25 ml Q15M PRN IV DECREASED GLUCOSE; Start 06/22/16 at 12:30 Dextrose (D50w Syringe) 50 ml Q15M PRN IV DECREASED GLUCOSE; Start 06/22/16 at 12:30 Glucagon (Glucagen) 1 mg Q15M PRN IM DECREASED GLUCOSE; Start 06/22/16 at 12:30 Glucose (Glutose) 15 gm Q15M PRN BUCCAL DECREASED GLUCOSE; Start 06/22/16 at 12 :30 Insulin Glargine (Lantus) 10 unit QHS SC Last administered on 06/24/16 21:03; Admin Dose 10 UNIT; Start 06/22/16 at 21:00 Lisinopril (Zestril) 20 mg DAILY PO Last administered on 06/25/16 08:20; Admin Dose 20 MG; Start 06/23/16 at 09:00 Gentamicin Sulfate (Gentamicin Iv Per Pharmacy) GENTAMICIN PER PHARMACY NOTE XX ; Start 06/23/16 at 11:00 Fluconazole (Diflucan) 100 mg DAILY PO Last administered on 06/25/16 08:21; Admin Dose 100 MG; Start 06/24/16 at 09:00; Stop 06/27/16 at 08:59 Aspirin (Halfprin) 81 mg DAILY PO Last administered on 06/25/16 08:20; Admin Dose 81 MG; Start 06/25/16 at 09:00 Assessment/Plan Chief Complaint/Hosp Course 1. Sepsis. Underlying source unclear, possible pneumonia, possible urinary tract infection. Rule out line infection. The patient's white count has improved after starting antibiotic therapy. The patient's cultures have been negative after 24 hours. Plan at this point is to continue to monitor blood cultures for another 24 to 48 hours. If they remain negative, the patient will likely be able to be discharged, with a short course of oral antibiotics. If blood culture remain positive, may require line removal. Will monitor closely. 2. Atrial fibrillation. Currently rate controlled. Continue medical management. Follow up with cardiology. 3. Congestive heart failure and cardiomyopathy. Continue the current treatment plan. Continue ultrafiltration dialysis. 4. End-stage renal disease. The patient is on dialysis Monday, Monday, and Monday.-watch daily for indications. 5. Diabetes. Continue the current insulin regimen. 6. Anemia of chronic disease. Continue to monitor hemoglobin and hematocrit levels. 7. Mineral bone disorder. Continue to monitor calcium and phosphorus levels. 8. Coronary artery disease. Continue medical management. 9. Peripheral vascular disease. The patient is on Trental. 10. Hypertension. Improving. Continue ultrafiltration dialysis. Continue the current blood pressure regimen. 11. Gastrointestinal and deep venous thrombosis prophylaxis. Continue proton pump inhibitors and sequential leg squeezers. Problems: ARACELI BLANCAS MD Jun 25, 2016 09:02
[2016-06-25] MEDS: INSULIN ASPART [NOVOLOG] 3 ML PEN SC SCH ×4 (11:30→21:36)
--- NOTE | 2016-06-25 12:28 | PN ---
DATE: 06/25/2016 CARDIOLOGY FOLLOWUP SUBJECTIVE: Discussed with the staff. Rhythm strip was reviewed. The patient remains in sinus rhy thm. No chest pain or pressure. No palpitation. No groin pain. MEDICATIONS: Reviewed, medical record was personally reviewed, which include: 1. Aspirin. 2. Plavix. 3. Multiple antibiotics. 4. Isordil. 5. Lisinopril 20. 6. Lipitor. 7. Coreg 12.5. 8. Nifedipine. PHYSICAL EXAMINATION: VITAL SIGNS: Temperature 98.3, heart rate of 79, blood pressure 130/74, respirations 18, saturating 97%. HEENT: Normocephalic, atraumatic. Pupils are equal. Oropharynx with poor dentition. CARDIOVASCULAR: Regular rate and rhythm, systolic murmur. PULMONARY: With no wheezes. GASTROINTESTINAL: Soft, nontender. VASCULAR: Right groin no bleeding, no hematoma. EXTREMITIES: Trivial edema. NEUROLOGIC: Awake, responds appropriately. PSYCHIATRIC: Appears to be calm. LABORATORY DATA: WBC of 11.2, hemoglobin 9.7, platelets 214. Sodium 137, potassium 3.8, BUN of 24, creatinine 252, glucose of 175. ASSESSMENT AND PLAN: 1. [id number] myocardial infarction. 2. Status post percutaneous coronary intervention of the left anterior descending and diagonal. 3. Renal failure, on dialysis. 4. Severe cardiomyopathy. 5. Coronary artery disease. 6. Dyslipidemia. RECOMMENDATIONS: Antibiotic management as per internal medicine and ID's recommendation. Continue with aspirin and Plavix. Continue with ROSARIO inhibitor and beta felipe. Okay to be transferred out of ICU. Dictated By: FREDERICK MILIAN MD AV/ANGEI Conf#: [id number] DID#: [id number] CC: ÁNGEL HARDING DO;*EndCC*
--- NOTE | 2016-06-25 16:43 | CONS ---
Date/Time of Note Date/Time of Note DATE: 06/25/16 TIME: 16:37 Assessment/Plan Assessment/Plan Chief Complaint/Hosp Course ID PROGRESS NOTE ABX DAY #4 => Vanco IV (06/22) +Gent IV (06/23) Levaquin + Diflucan + IV Steroids s/p Zosyn 06/22 in ED 24H INTERVAL SUMMARY * Awake, alert, ?confused speaking Wol[place] asking me and the nurse "is the bed going to stay this way?" We asked her if there is something wrong with the bed...she says she does not know, does not want the HOB up. We told her the bed is straight in the room, we don't see any problem with it. Nurse thinks maybe waking up from nap a bit disoriented. She remains lethargic, feeling much better , no fevers, WBC normal, OFF supplemental O2 * CXR 06/24: IMPRESSION:Radiographic findings of congestive heart failure again seen which is improved. PHYSICAL EXAMINATION: GENERAL: 60 yo F stable on supplemental O2, calm, NAD, communicative, feels better HEENT: AT, NC, anicteric, EOMsI, no oral thrush NECK: Supple, trachea midline. CHEST: Rise symmetrical, (+) chest congested coughing w/deep inspiration, Right chest HD catheter in place HEART: Pulse RRR -- Tachy ABDOMEN: Soft, non-tender EXTREMITIES: Warm, dry, no edema SKIN: Intact Neuro: Grossly intact ID ASSESSMENT 60 yo F w/PMHx of HTN, DM, prior ID, ESRD-HD via right chest HD catheter present on admission seen in ED bed #3 earlier today with: 1. SIRS vs early sepsis on admission w/T 97.9, elevated lactic acid to 1.7, significant leukocytosis 27,000, tachycardia, tachypnea =>RESOLVED * DDx: HD Line sepsis vs HCAP vs UTI 2. Acute chest pain in setting fluid overload, Afib w/RVR,, HTN urgency, respiratory distress associated w/hypoxia, cough, chest congestion. * (+)Troponin bump 0.377, Acute fluid overload status -- CHF w/elevated BNP in setting Afib w/RVR 3. Acute bronchopneumonia, with LLL infiltrate on CXR - HCAP per HD unit status OP 4. UA(+) Pyuria >50 w/2+ LeukEsterase, (+)bacteria, (+)YEAST, (+)Microscopic hematuria * 06/22 Urine Cx (-)24H ( ) MRSA Nares-> Will screen INVASIVES: PIV ABX ALLERGY: KNDA CURRENT ABX: ABX DAY #4=>Vanco IV + Levaquin + GENT + Diflucan s/p Zosyn ID RECOMMENDATIONS 1.DC ABX Monday and observe 5. Short course Diflucan for (+)Many Yeast present on UA -- suspect urostasis * Anticipate DC OFF ABX . . Problems: Consultation Date/Type/Reason Admit Date/Time Jun 22, 2016 at 07:58 Exam/Review of Systems Vital Signs Vitals Vital Signs Date Time Temp Pulse Resp B/P Pulse Ox O2 Delivery O2 Flow Rate FiO2 06/25/16 16:23 99.0 85 20 103/53 95 Room Air 06/24/16 08:00 3.0 06/22/16 07:30 60 Intake and Output 06/24/16 06/24/16 06/25/16 15:00 23:00 07:00 Intake Total 500 ml 700 ml 270 ml Output Total 3000 ml 0 ml 150 ml Balance -2500 ml 700 ml 120 ml Results Result Diagram: 06/25/16 0510 06/25/16 0510 Results 24 hrs Laboratory Tests Test 06/24/16 17:55 06/25/16 05:10 06/25/16 05:17 06/25/16 08:05 Bedside Glucose 103 182 180 White Blood Count 7.2 Red Blood Count 3.66 L Hemoglobin 9.7 L Hematocrit 31.7 L Mean Corpuscular Volume 86.6 Mean Corpuscular Hemoglobin 26.5 L Mean Corpuscular Hemoglobin Concent 30.6 L Red Cell Distribution Width 15.6 H Platelet Count 214 Mean Platelet Volume 10.1 Neutrophils % 73.3 Lymphocytes % 10.7 L Monocytes % 10.3 Eosinophils % 4.5 Basophils % 0.6 Nucleated Red Blood Cells % 0.0 Neutrophils # 5.3 Lymphocytes # 0.8 Monocytes # 0.7 Eosinophils # 0.3 Basophils # 0.0 Nucleated Red Blood Cells # 0.0 Sodium Level 137 Potassium Level 3.8 Chloride Level 103 Carbon Dioxide Level 23 Anion Gap 15 # Blood Urea Nitrogen 24 H Creatinine 2.52 H Glucose Level 171 Calcium Level 9.0 Phosphorus Level 4.4 Magnesium Level 1.9 Total Bilirubin 0.5 Direct Bilirubin 0.00 Indirect Bilirubin 0.5 Aspartate Amino Transf (AST/SGOT) 31 Alanine Aminotransferase (ALT/SGPT) 37 Alkaline Phosphatase 108 Total Protein 6.5 Albumin 2.8 L Globulin 3.70 H Albumin/Globulin Ratio 0.75 Test 06/25/16 12:22 Bedside Glucose 226 H Medications Medications Current Medications Atorvastatin Calcium (Lipitor) 40 mg QHS PO Last administered on 06/24/16 21: 11; Admin Dose 40 MG; Start 06/22/16 at 21:00 Carvedilol (Coreg) 12.5 mg BID PO Last administered on 06/25/16 08:22; Admin Dose 12.5 MG; Start 06/22/16 at 21:00 Clonidine (Catapres) 0.2 mg Q8 PO Last administered on 06/25/16 08:21; Admin Dose 0.2 MG; Start 06/22/16 at 14:00 Clopidogrel Bisulfate (plaVIX) 75 mg DAILY PO Last administered on 06/25/16 08 :20; Admin Dose 75 MG; Start 06/23/16 at 09:00 Ferrous Sulfate (Ferrous Sulfate (Ec)) 325 mg BID PO Last administered on 08:23; Admin Dose 325 MG; Start 06/22/16 at 21:00 Isosorbide Mononitrate (Imdur) 60 mg DAILY PO Last administered on 06/25/16 08 :21; Admin Dose 60 MG; Start 06/23/16 at 09:00 Nifedipine (Procardia Xl) 30 mg BID PO Last administered on 06/25/16 08:22; Admin Dose 30 MG; Start 06/22/16 at 21:00; Status Future hold Pentoxifylline (Trental) 400 mg DAILY PO Last administered on 06/25/16 08:23; Admin Dose 400 MG; Start 06/23/16 at 09:00 Miscellaneous Information 1 ea NOTE XX ; Start 06/22/16 at 12:30 Glucose (Glutose) 15 gm Q15M PRN PO DECREASED GLUCOSE; Start 06/22/16 at 12:30 Glucose (Glutose) 22.5 gm Q15M PRN PO DECREASED GLUCOSE; Start 06/22/16 at 12: 30 Dextrose (D50w Syringe) 25 ml Q15M PRN IV DECREASED GLUCOSE; Start 06/22/16 at 12:30 Dextrose (D50w Syringe) 50 ml Q15M PRN IV DECREASED GLUCOSE; Start 06/22/16 at 12:30 Glucagon (Glucagen) 1 mg Q15M PRN IM DECREASED GLUCOSE; Start 06/22/16 at 12:30 Glucose (Glutose) 15 gm Q15M PRN BUCCAL DECREASED GLUCOSE; Start 06/22/16 at 12 :30 Insulin Glargine (Lantus) 10 unit QHS SC Last administered on 06/24/16 21:03; Admin Dose 10 UNIT; Start 06/22/16 at 21:00 Lisinopril (Zestril) 20 mg DAILY PO Last administered on 06/25/16 08:20; Admin Dose 20 MG; Start 06/23/16 at 09:00 Gentamicin Sulfate (Gentamicin Iv Per Pharmacy) GENTAMICIN PER PHARMACY NOTE XX ; Start 06/23/16 at 11:00 Fluconazole (Diflucan) 100 mg DAILY PO Last administered on 06/25/16 08:21; Admin Dose 100 MG; Start 06/24/16 at 09:00; Stop 06/27/16 at 08:59 Aspirin (Halfprin) 81 mg DAILY PO Last administered on 06/25/16 08:20; Admin Dose 81 MG; Start 06/25/16 at 09:00 AGUSTIN IRELAND NP Jun 25, 2016 16:43
[2016-06-25] MEDS: ATORVASTATIN 40 MG TAB PO SCH (21:23)
[2016-06-25] MEDS: INSULIN GLARGINE [LANtus] 3 ML PEN SC SCH (21:36)
[2016-06-26] VITALS (13 sets, daily range): BP systolic 109–152; BP diastolic 50–75; PULSE 79–83; RESP 16–20
[2016-06-26] MEDS: INSULIN ASPART [NOVOLOG] 3 ML PEN SC SCH ×4 (07:46→21:00)
--- NOTE | 2016-06-26 08:33 | CONS ---
Date/Time of Note Date/Time of Note DATE: 06/26/16 TIME: 08:30 Consult Date/Type/Reason Admit Date/Time Jun 22, 2016 at 07:58 Type of Consultation: IM Subjective pt. seen and examined. s/p HD yesterday tolerated well. MS better this am. denies cp/sob/bleeding pe: HEENT: AT, NC, anicteric, EOMsI, no oral thrush NECK: Supple, trachea midline. CHEST: Rise symmetrical, (+) chest congested coughing w/deep inspiration, Right chest HD catheter in place HEART: Pulse RRR -- Tachy ABDOMEN: Soft, non-tender EXTREMITIES: Warm, dry, no edema SKIN: Intact Neuro: Grossly intact Objective Vital Signs Date Time Temp Pulse Resp B/P Pulse Ox O2 Delivery O2 Flow Rate FiO2 06/26/16 08:14 80 06/26/16 07:35 98.0 20 111/59 95 06/25/16 16:23 Room Air 06/24/16 08:00 3.0 06/22/16 07:30 60 Intake and Output 06/25/16 06/25/16 06/26/16 15:00 23:00 07:00 Intake Total 300 ml 360 ml Balance 300 ml 360 ml Results/Medications Result Diagram: 06/25/16 0510 06/25/16 0510 Results 24 hrs Laboratory Tests Test 06/25/16 12:22 06/25/16 21:21 06/26/16 02:07 06/26/16 07:32 Bedside Glucose 226 H 208 91 106 Medications Current Medications Atorvastatin Calcium (Lipitor) 40 mg QHS PO Last administered on 06/25/16 21: 23; Admin Dose 40 MG; Start 06/22/16 at 21:00 Carvedilol (Coreg) 12.5 mg BID PO Last administered on 06/25/16 21:23; Admin Dose 12.5 MG; Start 06/22/16 at 21:00 Clonidine (Catapres) 0.2 mg Q8 PO Last administered on 06/25/16 21:24; Admin Dose 0.2 MG; Start 06/22/16 at 14:00 Clopidogrel Bisulfate (plaVIX) 75 mg DAILY PO Last administered on 06/25/16 08 :20; Admin Dose 75 MG; Start 06/23/16 at 09:00 Ferrous Sulfate (Ferrous Sulfate (Ec)) 325 mg BID PO Last administered on 21:23; Admin Dose 325 MG; Start 06/22/16 at 21:00 Isosorbide Mononitrate (Imdur) 60 mg DAILY PO Last administered on 06/25/16 08 :21; Admin Dose 60 MG; Start 06/23/16 at 09:00 Nifedipine (Procardia Xl) 30 mg BID PO Last administered on 06/25/16 21:23; Admin Dose 30 MG; Start 06/22/16 at 21:00; Status Future hold Pentoxifylline (Trental) 400 mg DAILY PO Last administered on 06/25/16 08:23; Admin Dose 400 MG; Start 06/23/16 at 09:00 Miscellaneous Information 1 ea NOTE XX ; Start 06/22/16 at 12:30 Glucose (Glutose) 15 gm Q15M PRN PO DECREASED GLUCOSE; Start 06/22/16 at 12:30 Glucose (Glutose) 22.5 gm Q15M PRN PO DECREASED GLUCOSE; Start 06/22/16 at 12: 30 Dextrose (D50w Syringe) 25 ml Q15M PRN IV DECREASED GLUCOSE; Start 06/22/16 at 12:30 Dextrose (D50w Syringe) 50 ml Q15M PRN IV DECREASED GLUCOSE; Start 06/22/16 at 12:30 Glucagon (Glucagen) 1 mg Q15M PRN IM DECREASED GLUCOSE; Start 06/22/16 at 12:30 Glucose (Glutose) 15 gm Q15M PRN BUCCAL DECREASED GLUCOSE; Start 06/22/16 at 12 :30 Insulin Glargine (Lantus) 10 unit QHS SC Last administered on 06/25/16 21:36; Admin Dose 10 UNIT; Start 06/22/16 at 21:00 Lisinopril (Zestril) 20 mg DAILY PO Last administered on 06/25/16 08:20; Admin Dose 20 MG; Start 06/23/16 at 09:00 Gentamicin Sulfate (Gentamicin Iv Per Pharmacy) GENTAMICIN PER PHARMACY NOTE XX ; Start 06/23/16 at 11:00 Fluconazole (Diflucan) 100 mg DAILY PO Last administered on 06/25/16 08:21; Admin Dose 100 MG; Start 06/24/16 at 09:00; Stop 06/27/16 at 08:59 Aspirin (Halfprin) 81 mg DAILY PO Last administered on 06/25/16t 08:20; Admin Dose 81 MG; Start 06/25/16 at 09:00 Assessment/Plan Chief Complaint/Hosp Course 1. Sepsis.Resolved with nl wbc count. Off abx per ID today and dc in am if all stable after hd. 2. Atrial fibrillation. Currently rate controlled. Continue medical management. Follow up with cardiology. 3. Congestive heart failure and cardiomyopathy. Continue the current treatment plan. Continue ultrafiltration dialysis. 4. End-stage renal disease. The patient is on dialysis Monday, Monday, and Monday.-watch daily for indications. 5. Diabetes. Continue the current insulin regimen. 6. Anemia of chronic disease. Continue to monitor hemoglobin and hematocrit levels. 7. Mineral bone disorder. Continue to monitor calcium and phosphorus levels. 8. Coronary artery disease. Continue medical management. s/p stent. d/w cardiology 9. Peripheral vascular disease. The patient is on Trental. 10. Hypertension. Improving. Continue ultrafiltration dialysis. Continue the current blood pressure regimen. 11. Gastrointestinal and deep venous thrombosis prophylaxis. Continue proton pump inhibitors and sequential leg squeezers. Problems: ARACELI BLANCAS MD Jun 26, 2016 08:33
[2016-06-26] MEDS: PENTOXIFYLLINE (SR) 400 MG TAB PO SCH (08:41)
[2016-06-26] MEDS: FERROUS SULFATE (EC) 325 MG TAB PO SCH ×2 (08:41→21:14)
[2016-06-26] MEDS: CLOPIDOGREL 75 MG TAB PO SCH (08:41)
[2016-06-26] MEDS: ASPIRIN (EC) 81 MG TAB PO SCH (08:41)
[2016-06-26] MEDS: FLUCONAZOLE 100 MG TAB PO SCH (08:41)
[2016-06-26] MEDS: LISINOPRIL 20 MG TAB PO SCH ×2 (08:43→12:11)
[2016-06-26] MEDS: NIFEdipine (XL) 30 MG TAB PO SCH ×3 (08:43→21:14)
[2016-06-26] MEDS: ISOSORBIDE MONONITRATE(SR)60 MG TAB PO SCH ×2 (08:43→12:07)
--- NOTE | 2016-06-26 19:35 | CONS ---
Date/Time of Note Date/Time of Note DATE: 06/26/16 TIME: 19:28 Assessment/Plan Assessment/Plan Chief Complaint/Hosp Course ID PROGRESS NOTE ABX DAY #5=> Vanco IV (06/22) +Gent IV (06/23) Diflucan + IV Steroids s/p Zosyn 06/22 in ED 24H INTERVAL SUMMARY * Feeling much better, ambulatory in the room to the bathroom, independent with ADLs, More awake, alert today. No fevers w/TMax 99.3. Respiratory distress has resolved with HD removal of CHF fluid. BCx (-), urine grew yeast = WILL DC Vanco & Gent today PHYSICAL EXAMINATION: GENERAL: 60 yo F stable on supplemental O2, calm, NAD, communicative, feels better HEENT: AT, NC, anicteric, EOMsI, no oral thrush NECK: Supple, trachea midline. CHEST: Rise symmetrical, (+) chest congested coughing w/deep inspiration, Right chest HD catheter in place HEART: Pulse RRR -- Tachy ABDOMEN: Soft, non-tender EXTREMITIES: Warm, dry, no edema SKIN: Intact Neuro: Grossly intact ID ASSESSMENT 60 yo F w/PMHx of HTN, DM, prior MS, ESRD-HD via right chest HD catheter present on admission seen in ED bed #3 earlier today with: 1. SIRS vs early sepsis on admission w/T 97.9, elevated lactic acid to 1.7, significant leukocytosis 27,000, tachycardia, tachypnea =>RESOLVED * DDx: HD Line sepsis vs HCAP vs UTI 2. Acute chest pain in setting fluid overload, Afib w/RVR,, HTN urgency, respiratory distress associated w/hypoxia, cough, chest congestion. * (+)Troponin bump 0.377, Acute fluid overload status -- CHF w/elevated BNP in setting Afib w/RVR 3. Acute bronchopneumonia, with LLL infiltrate on CXR - HCAP per HD unit status OP => RESOLVING 4. UA(+) Pyuria >50 w/2+ LeukEsterase, (+)bacteria, (+)YEAST, (+)Microscopic hematuria = UROSTASIS * 06/22 Urine Cx (+) YEAST ( ) MRSA Nares-> Will screen INVASIVES: PIV ABX ALLERGY: KNDA CURRENT ABX: ABX DAY #4=> Diflucan + GENT +Vanco IV -> DC 06/26 s/p Zosyn ID RECOMMENDATIONS 1.BCx (-) => DC Vanco IV & GENT and observe 5. Short course Diflucan for (+)Many Yeast present on UA -- suspect urostasis * Anticipate DC OFF ABX . . Problems: Consultation Date/Type/Reason Admit Date/Time Jun 22, 2016 at 07:58 Type of Consultation: id Exam/Review of Systems Vital Signs Vitals Vital Signs Date Time Temp Pulse Resp B/P Pulse Ox O2 Delivery O2 Flow Rate FiO2 06/26/16 19:09 99.2 80 16 109/51 96 06/25/16 16:23 Room Air 06/24/16 08:00 3.0 06/22/16 07:30 60 Intake and Output 06/25/16 06/25/16 06/26/16 15:00 23:00 07:00 Intake Total 300 ml 360 ml Balance 300 ml 360 ml Results Result Diagram: 06/25/16 0510 06/25/16 0510 Results 24 hrs Laboratory Tests Test 06/25/16 21:21 06/26/16 02:07 06/26/16 07:32 06/26/16 12:02 Bedside Glucose 208 91 106 208 Test 06/26/16 17:34 Bedside Glucose 172 Medications Medications Current Medications Atorvastatin Calcium (Lipitor) 40 mg QHS PO Last administered on 06/25/16 21: 23; Admin Dose 40 MG; Start 06/22/16 at 21:00 Clopidogrel Bisulfate (plaVIX) 75 mg DAILY PO Last administered on 06/26/16 08 :41; Admin Dose 75 MG; Start 06/23/16 at 09:00 Ferrous Sulfate (Ferrous Sulfate (Ec)) 325 mg BID PO Last administered on 08:41; Admin Dose 325 MG; Start 06/22/16 at 21:00 Isosorbide Mononitrate (Imdur) 60 mg DAILY PO Last administered on 06/26/16 12 :07; Admin Dose 60 MG; Start 06/23/16 at 09:00 Nifedipine (Procardia Xl) 30 mg BID PO Last administered on 06/26/16 12:10; Admin Dose 30 MG; Start 06/22/16 at 21:00; Status Future hold Pentoxifylline (Trental) 400 mg DAILY PO Last administered on 06/26/16 08:41; Admin Dose 400 MG; Start 06/23/16 at 09:00 Miscellaneous Information 1 ea NOTE XX ; Start 06/22/16 at 12:30 Glucose (Glutose) 15 gm Q15M PRN PO DECREASED GLUCOSE; Start 06/22/16 at 12:30 Glucose (Glutose) 22.5 gm Q15M PRN PO DECREASED GLUCOSE; Start 06/22/16 at 12: 30 Dextrose (D50w Syringe) 25 ml Q15M PRN IV DECREASED GLUCOSE; Start 06/22/16 at 12:30 Dextrose (D50w Syringe) 50 ml Q15M PRN IV DECREASED GLUCOSE; Start 06/22/16 at 12:30 Glucagon (Glucagen) 1 mg Q15M PRN IM DECREASED GLUCOSE; Start 06/22/16 at 12:30 Glucose (Glutose) 15 gm Q15M PRN BUCCAL DECREASED GLUCOSE; Start 06/22/16 at 12 :30 Insulin Glargine (Lantus) 10 unit QHS SC Last administered on 06/25/16 21:36; Admin Dose 10 UNIT; Start 06/22/16 at 21:00 Lisinopril (Zestril) 20 mg DAILY PO Last administered on 06/26/16 12:11; Admin Dose 20 MG; Start 06/23/16 at 09:00 Fluconazole (Diflucan) 100 mg DAILY PO Last administered on 06/26/16 08:41; Admin Dose 100 MG; Start 06/24/16 at 09:00; Stop 06/27/16 at 08:59 Aspirin (Halfprin) 81 mg DAILY PO Last administered on 06/26/16 08:41; Admin Dose 81 MG; Start 06/25/16 at 09:00 Carvedilol (Coreg) 25 mg BID PO Last administered on 06/26/16 12:11; Admin Dose 25 MG; Start 06/26/16 at 09:00 Clonidine (Catapres) 0.1 mg Q6H PRN PO SBP >170; Start 06/26/16 at 09:00 AGUSTIN IRELAND NP Jun 26, 2016 19:35
[2016-06-26] MEDS: ATORVASTATIN 40 MG TAB PO SCH (21:14)
[2016-06-26] MEDS: INSULIN GLARGINE [LANtus] 3 ML PEN SC SCH (21:22)
[2016-06-27] VITALS (17 sets, daily range): BP systolic 92–141; BP diastolic 46–76; PULSE 75–79; RESP 16–18
[2016-06-27 05:27] LABS: ADD SCAN DIFF NO
[2016-06-27 05:37] LABS: BASOPHILS % 0.5 % (0.0-2.0); EOSINOPHILS # 0.5 10^3/ul (0.0-0.5); EOSINOPHILS % 5.9 % (0.0-7.0); HEMATOCRIT 28.6 % (37.0-47.0); HEMOGLOBIN 9.1 g/dl (12.0-16.0); LYMPHOCYTES # 1.1 10^3/ul (0.8-2.9); LYMPHOCYTES % 14.2 % (15.0-51.0); MEAN CORPUSCULAR HGB CONC 31.8 g/dl (32.0-37.0); MEAN CORPUSCULAR VOLUME 84.9 fl (82.0-101.0); MEAN PLATELET VOLUME 10.3 fl (7.4-10.4); MONOCYTE # 0.7 10^3/ul (0.3-0.9); MONOCYTES % 8.9 % (0.0-11.0); NEUTROPHIL # 5.4 10^3/ul (1.6-7.5); NEUTROPHILS % 70.1 % (39.0-77.0); PLATELET COUNT 270 10^3/UL (140-415); RED BLOOD COUNT 3.37 10^6/ul (4.20-5.40); RED CELL DISTRIBUTION WIDTH 15.8 % (11.5-14.5); WHITE BLOOD COUNT 7.7 10^3/ul (4.8-10.8)
[2016-06-27 06:14] LABS: ALBUMIN/GLOBULIN RATIO 0.88; BILIRUBIN,INDIRECT 0.2 mg/dl (0-1.1); BILIRUBIN,TOTAL 0.2 mg/dl (0.2-1.3); CALCIUM 9.3 mg/dl (8.4-10.2); CREATININE 5.27 mg/dl (0.44-1.00); POTASSIUM 4.1 mmol/L (3.5-5.1); TOTAL PROTEIN 6.4 g/dl (6.1-8.1)
--- NOTE | 2016-06-27 07:11 | PN ---
DATE: 06/26/2016 CARDIOLOGY FOLLOWUP SUBJECTIVE: Discussed with the staff. Rhythm strip was reviewed. The patient with no chest pain o r pressure. No palpitations. No groin pain now. MEDICATIONS: Reviewed. PHYSICAL EXAMINATION: VITAL SIGNS: Temperature 98, heart rate of 80, blood pressure 111/59, respiration rate of 20, satur ating 95%. HEENT: Normocephalic, atraumatic. Pupils equal and round. CARDIOVASCULAR: Regular rate and rhythm. PULMONARY: With no wheezes. GASTROINTESTINAL: Soft, nontender. EXTREMITIES: With trivial edema. NEUROLOGIC: Awake, responds appropriately. PSYCHIATRIC: Appears to be calm. LABORATORY: Glucose 106. ASSESSMENT AND PLAN: 1. Qub-VP-mamhlgphb myocardial infarction. 2. Multivessel coronary artery disease, status post percutaneous coronary intervention of the left anterior descending artery. 3. History of severe cardiomyopathy, probably ischemic. 4. Congestive heart failure. 5. Hypertension. 6. Renal failure, on dialysis. 7. Dyslipidemia. RECOMMENDATIONS: I will increase the carvedilol and keep the clonidine only on a p.r.n. basis. Asp irin and Plavix will be continued. Imdur will be continued. ROSARIO inhibitor will be continued. Stat in will be continued. We will continue to monitor on telemetry. Dictated By: FREDERICK HANSEN/ANGIE Conf#: [id number] DID#: [id number]
[2016-06-27] MEDS: INSULIN ASPART [NOVOLOG] 3 ML PEN SC SCH ×4 (07:41→20:11)
[2016-06-27] MEDS: ASPIRIN (EC) 81 MG TAB PO SCH (08:36)
[2016-06-27] MEDS: CLOPIDOGREL 75 MG TAB PO SCH (08:36)
[2016-06-27] MEDS: PENTOXIFYLLINE (SR) 400 MG TAB PO SCH (08:36)
[2016-06-27] MEDS: FERROUS SULFATE (EC) 325 MG TAB PO SCH ×2 (08:37→20:07)
[2016-06-27] MEDS: ISOSORBIDE MONONITRATE(SR)60 MG TAB PO SCH (08:40)
[2016-06-27] MEDS: NIFEdipine (XL) 30 MG TAB PO SCH ×2 (08:41→20:04)
[2016-06-27] MEDS: LISINOPRIL 20 MG TAB PO SCH (08:41)
[2016-06-27] MEDS ORDERED: LANT3I SC (09:39)
[2016-06-27] MEDS ORDERED: CARV12.579 PO (09:39)
[2016-06-27] MEDS ORDERED: ASPI325T4 PO (09:39)
--- NOTE | 2016-06-27 14:59 | RADRPT ---
Vent Rate: 86 bpm RR Interval: 0 msec FL Interval: 148 msec QRS Duration: 74 msec QT Interval: 418 msec QTC Interval: 500 msec P-R-T [place]: 25 - -6 - 105 degrees Normal sinus rhythm ST amp; T wave abnormality, consider anterolateral ischemia Prolonged QT Abnormal ECG Electronically Signed By: Ramon Aquino [id number]
--- NOTE | 2016-06-27 15:49 | PN ---
DATE: 06/27/2016 INFECTIOUS DISEASE PROGRESS NOTE SUBJECTIVE: No acute changes. The patient is sleeping, looks comfortable, no fevers. LABORTORY DATA: WBC today 7.7, no shift, no bands. BUN 36, creatinine 5.27. ANTIMICROBIALS: Status post fluconazole, off antibiotics. PHYSICAL EXAMINATION: GENERAL: Fragile, elderly woman who is in no distress. HEENT: Head atraumatic, normocephalic. Sclerae anicteric. Buccal mucosa dry. NECK: Supple, trachea midline. CHEST: Rise symmetrical. Breath sounds diminished to bases. HEART: S1, S2. ABDOMEN: Soft, bowel sounds present. EXTREMITIES: Without cyanosis. ASSESSMENT: 1. Krysten albicans urinary tract infection. 2. Anemia. 3. End-stage renal disease, hemodialysis dependent. 4. Status post pneumonia. PLAN: The patient remains stable off antibiotics, pending discharge planning. Dictated By: DAYNA WARE [employer] B[employer]KE COUPLER for KASSANDRA LOUIE/ANGIE Conf#: [id number] DID#: [id number]
[2016-06-27] MEDS: ATORVASTATIN 40 MG TAB PO SCH (20:07)
[2016-06-27] MEDS: INSULIN GLARGINE [LANtus] 3 ML PEN SC SCH (20:15)
--- NOTE | 2016-06-27 20:43 | PN ---
DATE: 06/27/2016 SUBJECTIVE: Discussed with the staff. Rhythm strip was reviewed. The patient ____ palpitation or shortness of breath, wants to go home. MEDICATIONS: Reviewed. PHYSICAL EXAMINATION: VITAL SIGNS: Temperature 98.3, heart rate of 83, blood pressure 115/54, respiratory rate of 18. HEENT: Normocephalic, atraumatic. Pupils are equal and round. CARDIOVASCULAR: Regular rate and rhythm. PULMONARY: No wheezes now. GASTROINTESTINAL: Soft, nontender. EXTREMITIES: Trivial edema. NEUROLOGIC: Awake, responds appropriately. PSYCHIATRIC: Appeared to be calm and pleasant. LABORATORY: WBC of 7.7, hemoglobin 9.1, platelets of 270. Sodium 134, potassium 4.1, BUN of 36, cr eatinine 1.27, glucose of 89. ASSESSMENT AND PLAN: 1. Non-ST elevation myocardial infarction with paroxysmal atrial fibrillation with rapid ventricula r response. 2. Multivessel coronary artery disease, status post percutaneous coronary intervention of the left anterior descending. 3. Cardiomyopathy, severe. 4. Congestive heart failure, currently controlled. 5. Renal failure on dialysis. 6. Dyslipidemia. RECOMMENDATIONS: Will continue with aspirin and Plavix, continue with the Coreg. Hemodialysis as p er Renal. Discharge planning is in process. Statin will be continued. Dictated By: FREDERICK MILIAN MD AV/ANGIE Conf#: [id number] DID#: [id number] CC: ÁNGEL HARDING DO;*EndCC*
--- NOTE | 2016-06-28 01:20 | DS ---
DATE OF ADMISSION: 06/22/2016 DATE OF DISCHARGE: 06/27/2016 HOSPITAL COURSE: This is a 60-year-old female with a past medical history of end-stage renal diseas e on dialysis Monday, Monday, Monday; history of diabetes, hypertension, dyslipidemia, coronary a rtery disease, history of peripheral vascular disease who was admitted to [facility] with shortness of breath and chills. The patient, in the emergency room, was diagnosed with CHF exacerbation and sepsis due to pneumonia. The patient was subsequently admitted for evaluation. In terms of the patient's sepsis, she was treated with IV antibiotics, was seen by infectious disease, Dr. Suero. The patient's blood cultures were negative. The patient's urine cultures grew out Can dida and was treated with Diflucan. The patient has completed antibiotic course and has been stable off antibiotic therapy has been afebrile with improvement of her leukocytosis. The patient also, d uring the hospital course, was noted to have elevated troponin, was in atrial fibrillation with rapi d rate, was seen by Dr. Rodriguez. The patient was diagnosed with a non-STEMI, was taken to the cath l ab, and had a stent placed in LAD. The patient tolerated the procedure well and is currently withou t any chest pain or shortness of breath. The patient's other medical problems include AFib has sinc e resolved, CHF which is resolving, diabetes, anemia of chronic disease, mineral bone disorder have all been stable. Currently, at this time, the patient is clinically stable. She will be discharged home later today. She will follow up with the primary care physician and her solvent process extractor operator, Dr. Stephanie shaikh, in 1 to 2 weeks' time. Please note, I did explain to the patient and patient's son in [facility] the importance of medical compliance with her antiplatelet therapy and per importance follow up with the solvent process extractor operator. The patient and patient's son both voiced understanding. DISCHARGE DISPOSITION: Currently, at this time, the patient will be discharged home. DISCHARGE CONDITION: At time of discharge, the patient is stable, in no acute distress. FINAL DIAGNOSES: 1. Sepsis secondary to pneumonia, resolved. 2. Non-ST elevation myocardial infarction, status post percutaneous coronary intervention to the le ft anterior descending. 3. Atrial fibrillation, paroxysmal, resolved, currently sinus rhythm. 4. Cardiomyopathy. 5. Congestive heart failure. 6. End-stage renal disease. 7. Diabetes. 8. Hypertension. 9. Anemia. 10. Metabolic disorder. 11. Peripheral vascular disease. 12. Hypertension. FINAL MEDICATIONS: The patient will be discharged home on: 1. Aspirin 81 mg daily. 2. Lipitor 40 mg at bedtime. 3. Coreg 25 mg b.i.d. 4. Plavix 75 mg daily. 5. Lantus 10 units subcu at bedtime. 6. Lisinopril 20 mg daily. 7. Nifedipine 30 mg p.o. b.i.d. 8. Imdur 60 mg p.o. daily. At time of discharge, the patient is stable, in no acute distress. Please note I spent over 40 minutes of time preparing the patient's discharge. I discussed the case with the patient's son, Jame, and with the nursing staff. Dictated By: ÁNGEL GOLDBERG/ANGIE Conf#: [id number] DID#: [id number]
== END 2016-06-27 22:50 | disposition home or self-care (01) | DRG 853 ==
LOC: E/R 05:33 → TEL 07:58 → ICU 06-25 04:26 → TEL 06-25 15:08
PROVIDERS: ADMIT Internal Medicine; ATTEND Internal Medicine
PROC: 5A1D60Z (ICD-10-PCS; principal; 2016-06-22)
PROC: 5A09357 Assistance with Respiratory Ventilation, Less than 24 Consecutive Hours, Continuous Positive Airway Pressure (ICD-10-PCS; 2016-06-22)
PROC: 02703ZZ Dilation of Coronary Artery, One Artery, Percutaneous Approach (ICD-10-PCS; 2016-06-24)
PROC: 4A023N7 Measurement of Cardiac Sampling and Pressure, Left Heart, Percutaneous Approach (ICD-10-PCS; 2016-06-24)
PROC: B211YZZ Fluoroscopy of Multiple Coronary Arteries using Other Contrast (ICD-10-PCS; 2016-06-24)
PROC: B215YZZ Fluoroscopy of Left Heart using Other Contrast (ICD-10-PCS; 2016-06-24)
PROC: 027034Z Dilation of Coronary Artery, One Artery with Drug-eluting Intraluminal Device, Percutaneous Approach (ICD-10-PCS; 2016-06-24 14:30)
DX: A41.9 Sepsis, unspecified organism (principal); J18.9 Pneumonia, unspecified organism; I21.4 Non-ST elevation (NSTEMI) myocardial infarction; J96.90 Respiratory failure, unspecified, unspecified whether with hypoxia or hypercapnia; I13.2 Hypertensive heart and chronic kidney disease with heart failure and with stage 5 chronic kidney disease, or end stage renal disease; N18.6 End stage renal disease; I42.9 Cardiomyopathy, unspecified; B37.49 Other urogenital candidiasis; E11.22 Type 2 diabetes mellitus with diabetic chronic kidney disease; I48.0 Paroxysmal atrial fibrillation; I50.9 Heart failure, unspecified; D63.1 Anemia in chronic kidney disease; E78.5 Hyperlipidemia, unspecified; I25.10 Atherosclerotic heart disease of native coronary artery without angina pectoris; E11.51 Type 2 diabetes mellitus with diabetic peripheral angiopathy without gangrene; E83.9 Disorder of mineral metabolism, unspecified; I16.0 Hypertensive urgency; I25.82 Chronic total occlusion of coronary artery; Z99.2 Dependence on renal dialysis
CPT/HCPCS: 36415; 36600; 71010; 80048; 80053; 80162; 80202; 81001; 81003; 82550; 82553; 82803; 82962; 83605; 83735; 83880; 84100; 84439; 84443; 84484; 85025; 85610; 85730; 87040; 87086; 90935; 92920; 93005; 93306; 93458; 94660; 96374; 96375; 97162; C1725; C1769; C1874; C1887; C1894; C9600; J0583; J1580; J1644; J1815; J2250; J2543; J3010; J3370; J7030; J7050; Q9967

== ENCOUNTER 2017-09-29 06:36 | Day surgery (SDC) | END 2017-09-29 14:01 | disposition other institution (70) ==